=== PATIENT | female | born 1955 | race Caucasian/White ===

== ENCOUNTER → 2017-01-07 | Outpatient (CLI) | payer BC | LOC: RAD 09:24 | PROVIDERS: ATTEND Internal Medicine Medical Oncology | DX: C50.919 Malignant neoplasm of unspecified site of unspecified female breast (principal) | CPT/HCPCS: 78306; A9503; Q9969 ==

== ENCOUNTER 2017-01-09 12:59 | Day surgery (SDC) | payer BC ==
[~2017-01-09 12:59] MED LIST: LIDOCAINE 1%/EPINEPHRINE INJ 20 ML VIAL ONE
[2017-01-09] MEDS ORDERED: CEFAZOLIN 1 GM/D5W RTU 1 GM/50 ML RTUPB IV ONE (13:12)
[2017-01-09] MEDS ORDERED: RINGERS SOLUTION,LACTATED 1,000 ML IV PRN (13:26)
[2017-01-09] MEDS ORDERED: ACETAMINOPHEN 325 MG TABLET PO PRN (13:27)
[2017-01-09] MEDS ORDERED: KETAMINE HCL INJ 500 MG/10 ML VIAL ONE (13:52)
[2017-01-09] MEDS ORDERED: MIDAZOLAM 2 MG/2 ML INJ ONE (13:52)
[2017-01-09] MEDS ORDERED: PROPOFOL INJ 200 MG/20 ML VIAL IV ONE (13:52)
[2017-01-09] MEDS ORDERED: LIDOCAINE 1%/EPINEPHRINE INJ 20 ML VIAL ONE (14:12)
[2017-01-09] MEDS ORDERED: MEPERIDINE HCL/PF INJ 25 MG/1 ML DISP.SYRIN IV PRN (14:54)
[2017-01-09] MEDS ORDERED: MORPHINE SULFATE 10 MG/ML INJ IV PRN (14:54)
[2017-01-09] MEDS ORDERED: OXYCODONE-ACETAMINOPHEN 5-325 MG TABLET PO PRN ×3 (14:54→15:08)
[2017-01-09] MEDS ORDERED: FENTANYL CITRATE INJ/PF 100 MCG/2 ML AMPUL IV PRN ×3 (14:54)
[2017-01-09] MEDS ORDERED: DIPHENHYDRAMINE HCL 50 MG/ML VIAL IV PRN (14:54)
[2017-01-09] MEDS ORDERED: PROMETHAZINE HCL INJ 25 MG/1 ML VIAL IV PRN ×2 (14:54)
[2017-01-09] MEDS ORDERED: ONDANSETRON HCL INJ/PF 4 MG/2 ML SDV IV PRN (15:08)
--- NOTE | 2017-01-09 15:08 | Operative Report ---
Operative Report DATE OF SURGERY: 01/09/17 PREOPERATIVE DIAGNOSIS: Left breast carcinoma POSTOPERATIVE DIAGNOSIS: Same OPERATION: 1. Focused ultrasound right neck. 2. Percutaneous access to right internal jugular vein. 3. Placement of right subclavian [id number]. 4. Interpretation of intraoperative fluoroscopy. SURGEON: FELIPE BURNETT 1ST HOT DIPPER: CAITLIN YEAGER ANESTHESIA: LMAC TISSUE REMOVED OR ALTERED: None COMPLICATIONS: None ESTIMATED BLOOD LOSS: scant INTRAOPERATIVE FINDINGS: Below PROCEDURE: Informed consent was obtained. The patient was placed in Trendelenburg the right neck and chest wall were exposed, and prepped and draped in a sterile fashion. Surgical plan and surgical timeout discussed. The right neck was anesthetized with 1% lidocaine without epinephrine. Using the variable frequency linear transducer, real time, a Vicryl needle and were threaded into the right internal jugular vein. A suitable site for placement of the Xblmzo-q-Oeif was chosen. Skin was anesthetized with 1% lidocaine plain. A 3 cm incision was made and a subcutaneous pocket was developed large enough to accommodate a dual-chamber port. The catheter was trimmed appropriately tunneled between the 2 wounds, attached to the port with the ring, the port was tucked into the pocket. The microwire was switched over to a 0.035 wire using the introducer sheath. The tract was dilated up, the dilator removed, and the catheter was threaded into the right internal jugular vein uneventfully. the catheter by fluoroscopic examination. There was excellent aspiration and flush of saline through all 2 lumens. Chambers were flushed with heparinized saline. Wounds closed with 2-0 Vicryl, benzoin and Steri-Strips The patient tolerated the procedure well. There were no complications. Portable upright chest x-ray pending at time of dictation. The physician personal assistant, Ms. Yeager, provided assistance during this case by: retracting tissue, instillation of local anesthesia and closure of skin incisions.
--- NOTE | 2017-01-09 15:11 | PDOC DISCHARGE SUMMARY ---
Discharge Summary (SDC) - Discharge Final Diagnosis: Left breast cancer Date of Surgery: 01/09/17 Discharge Date: 01/09/17 Condition: Good Treatment or Instructions: [facility] [address] [place] [id number] Discharge Instructions: Neck Surgery 1. General Information: a. Do not drive a car or operate machinery for 1-2 weeks or as long as taking narcotics for pain. b. Do not consume alcohol, tranquilizers, sleeping medications or any non- prescribed medications for 24 hours unless approved by your doctor or as long as taking pain medication. c. Do not make important decisions or sign any important papers for the first 24 hours after surgery. d. When discharged home the same day of surgery have a responsible person with you for the first night. 2. Activity Restrictions: 2 weeks. a. Avoid heavy lifting > 10 lbs, straining, sports, mowing lawn, shoveling snow, vacuum cleaning and bending over a lot. Limit bending to taking a shower and getting dressed. Sleep with head elevated (2 pillows). b. Walking is important to avoid blood clots in the legs and deep breathing can prevent pneumonia. c. It is fine to go up and down steps, ride in a car, and use a stationary bike with low resistance. 3. Treatment: a. The dressing can be removed the day after surgery and to shower then daily is fine, but you should not bathe in the tub or go swimming for 2 weeks. The paper strips (steri-strips) on the skin will fall off and can get wet with a shower, just pat them dry. The sutures dissolve and the strips will be removed in the office on your follow up visit if they have not fallen off by then. May shower 24 hours after surgery; if your incision was glued you may wash your neck and expect glue to fall off in about 2 weeks. b. Do not use oils, powders or lotion on your incision until after the first postoperative visit. Then you may begin to apply daily to the incision a cream of your choice (Vitamin E, cocoa butter, scar creams) to help soften the scar. c. If you are fair skinned it would be davidson to use sunscreen on the scar for the first 6 months or keep it covered to avoid tanning pigment deposits being trapped in the scar creating a dark line instead of a pink scar. 4. Medications: a. You may take narcotic prescription tablets for pain if needed, one or two every 4 hours (percocet). b. Stop the narcotic when able since you cannot take and drive and they may cause constipation. You may switch to plain Tylenol, Advil or Aleve as you transition from the narcotic. Many adults find good pain relief with Ibuprofen 600-800 mg three times a day with meals to work well to avoid narcotic use. High doses of Ibuprofen should only be used for short courses since it can cause indigestion, ulcer bleeding in the stomach and harm kidney function. c. You should resume all normal medications unless a change is specified by your doctors. d. a. If going home same day of surgery you should begin with clear liquids and if do well then advance to a normal diet with foods low in fat and protein. Small portion sizes may be davidson the first night to lessen risk of vomiting. b. When discharged after a hospital stay you may resume a normal diet. 6. Notify Physician If: a. Worsening of pain or swelling in neck, persistent bleeding at the operative site, nausea and vomiting, fever above 101, unable to urinate and bladder pressure after 8-12 hours, increased redness, drainage, or foul smelling discharge from the incision. b. If you have difficulty breathing or chest pain, call an ambulance and/or go to the Emergency Room. 7. Follow Up Care: a. Schedule a follow up appointment with your doctor for 2 weeks. In the event of any postoperative problems or questions or you may call the office during business hours or the On-Call physician evenings and weekends at [facility]. [facility] 8. I understand the instructions for my postoperative care as described above and a copy has been given to me. Patient/Significant Other Witness Date Prescriptions: Oxycodone HCl/Acetaminophen [Percocet 5-325 mg Tablet] 1 tab PO ASDIR PRN #15 tab PRN Reason: Discharge Diet: As Tolerated Discharge Activity: Activity As Tolerated Home Care Assistance: None Needed Report the Following to Your Physician Immediately: Shortness of Breath, Increase in Pain, Fever over 101 Degrees
[2017-01-09 17:10] VITALS: BP 148/74
== END 2017-01-09 17:09 | disposition home or self-care (01) ==
LOC: OROUT 12:59
PROVIDERS: ATTEND Surgery
PROC: 05H533Z Insertion of Infusion Device into Right Subclavian Vein, Percutaneous Approach (ICD-10-PCS; principal; 2017-01-09 15:00)
DX: C50.912 Malignant neoplasm of unspecified site of left female breast (principal); I10 Essential (primary) hypertension; F41.9 Anxiety disorder, unspecified; M25.559 Pain in unspecified hip; Z87.891 Personal history of nicotine dependence; Z79.899 Other long term (current) drug therapy; Z88.2 Allergy status to sulfonamides
CPT/HCPCS: 36561; 71010; 77001; C1788; C1752; J2250; J0690; J3490 ×2; J2704; J1642; 532

== ENCOUNTER → 2017-01-10 | Outpatient (CLI) | payer BC | LOC: RAD 10:55 | PROVIDERS: ATTEND Internal Medicine Medical Oncology | DX: R06.02 Shortness of breath (principal); C50.919 Malignant neoplasm of unspecified site of unspecified female breast | CPT/HCPCS: 78472; A9560; J1642; Q9969 ==

== ENCOUNTER → 2017-01-17 | Outpatient (CLI) | payer BC | LOC: OD 10:40 | PROVIDERS: ATTEND Internal Medicine Medical Oncology | DX: R07.81 Pleurodynia (principal) ==

== ENCOUNTER → 2017-01-21 | Outpatient (CLI) | payer BC | LOC: RAD 12:26 | PROVIDERS: ATTEND Internal Medicine Medical Oncology | DX: C50.919 Malignant neoplasm of unspecified site of unspecified female breast (principal) | CPT/HCPCS: 71260; 74160 ==

== ENCOUNTER → 2017-01-28 | Outpatient (CLI) | payer BC | LOC: RAD 15:24 | PROVIDERS: ATTEND Internal Medicine Medical Oncology | DX: R93.2 Abnormal findings on diagnostic imaging of liver and biliary tract (principal); K76.9 Liver disease, unspecified | CPT/HCPCS: 74183; A9576 ==

== ENCOUNTER → 2017-03-10 | Outpatient (CLI) | payer BC | LOC: RAD 16:56 | PROVIDERS: ATTEND Internal Medicine Medical Oncology | DX: C50.919 Malignant neoplasm of unspecified site of unspecified female breast (principal) | CPT/HCPCS: 78815; A9552 ==

== ENCOUNTER 2017-03-25 10:44 | Outpatient (CLI) | payer BC ==
[2017-03-25] MEDS ORDERED: NORMAL SALINE 250 ML IV PRN (11:25)
[2017-03-25] MEDS ORDERED: ACETAMINOPHEN 325 MG TABLET PO PRN (11:26)
[2017-03-25] MEDS ORDERED: DIPHENHYDRAMINE HCL 25 MG CAPSULE PO PRN (11:27)
[2017-03-25] MEDS ORDERED: FUROSEMIDE INJ/PF 20 MG/2 ML SDV IV PRN (11:27)
[2017-03-25 11:57] LABS: HEMATOCRIT 21.7 % (36.0-47.0); HGB HCT DIFFERENCE 1.1; MEAN CORPUSCULAR HEMOGLOBIN 31.7 pg (27.0-33.4); MEAN CORPUSCULAR HGB CONC 35.1 g/dL (32.0-36.0); MEAN CORPUSCULAR VOLUME 91 fl (80-97); RED BLOOD COUNT 2.39 10^6/uL (3.72-5.28); RED CELL DISTRIBUTION WIDTH 16.1 % (11.5-14.0)
[2017-03-25 12:15] LABS: WHITE BLOOD COUNT 0.5 10^3/uL (4.0-10.5)
[2017-03-25 12:18] LABS: HEMOGLOBIN 7.6 g/dL (12.0-15.5)
[2017-03-25 19:27] VITALS: BP 128/69
[2017-03-25 20:58] LABS: HEMATOCRIT 26.3 % (36.0-47.0); HEMOGLOBIN 9.1 g/dL (12.0-15.5); MEAN CORPUSCULAR HEMOGLOBIN 30.1 pg (27.0-33.4); MEAN CORPUSCULAR HGB CONC 34.8 g/dL (32.0-36.0); RED BLOOD COUNT 3.03 10^6/uL (3.72-5.28); RED CELL DISTRIBUTION WIDTH 16.6 % (11.5-14.0)
[2017-03-25 21:22] LABS: MEAN CORPUSCULAR VOLUME 87 fl (80-97); WHITE BLOOD COUNT 0.5 10^3/uL (4.0-10.5)
[2017-03-26 13:13] LABS: PATH REVIEW PATHOLOGIST REVIEWED
== END 2017-03-25 21:04 | disposition home or self-care (01) ==
LOC: II 10:44 → 2S 10:53 → II 21:04
PROVIDERS: ATTEND Internal Medicine Medical Oncology
PROC: 30243N1 Transfusion of Nonautologous Red Blood Cells into Central Vein, Percutaneous Approach (ICD-10-PCS; principal; 2017-03-25)
DX: C50.919 Malignant neoplasm of unspecified site of unspecified female breast (principal)
CPT/HCPCS: 86900; 86901; 36415; 36430; 86850; 85027; 86920; P9016

== ENCOUNTER → 2017-04-29 | Outpatient (CLI) | payer BC ==
--- NOTE | 2017-04-29 13:28 | RADIOLOGY REPORT (SQ) ---
EXAM DESCRIPTION: MRI ABDOMEN COMBO COMPLETED DATE/TIME: 04/29/2017 10:31 am REASON FOR STUDY: ABNORMAL CT OF LIVER R93.2 ABNORMAL FINDINGS ON DX IMAGING OF LIVER AND BILIARY T COMPARISON: PET-CT 03/10/2017 MRI abdomen 01/28/2017 CT chest abdomen and pelvis 01/21/2017 TECHNIQUE: Multiplanar multisequence imaging performed without and with contrast including sagittal, axial and coronal T2, axial T1, axial gradient fat sat T1, axial, sagittal and coronal fat sat T1 po st contrast. CONTRAST TYPE AND DOSE: 20 mL Prohance. RENAL FUNCTION: Creatinine 0.7 Estimated GFR greater than 60 LIMITATIONS: None. FINDINGS: LIVER: No discrete nodules are identified in the liver on the T2, precontrast T1 weighted images or out of phase T1 weighted images. On the delayed postcontrast images, some contrast blush i s seen in the lateral aspect right lobe liver image 36, involving less than a cm diameter area. This is less prominent than on prior MRI abdomen 01/28/2017. SPLEEN: Normal size. No focal lesions. PANCREAS: No masses. No adjacent inflammation or peripancreatic fluid collections. Pancreatic duct no t dilated. GALLBLADDER: No masses. No stones. No gallbladder wall thickening or pericholecystic fluid. ADRENAL GLANDS: No significant masses or asymmetry. RIGHT KIDNEY AND URETER: No masses. No hydronephrosis. 1.5 cm cyst versus calyceal diverticulum righ t upper pole kidney. LEFT KIDNEY AND URETER: No masses. No hydronephrosis. AORTA AND VESSELS: No aneurysm. No dissection. Renal arteries, SMA, celiac without stenosis. RETROPERITONEUM: No retroperitoneal adenopathy, hemorrhage or masses. BOWEL: No visualized masses. No inflammation. No significant dilatation. ABDOMINAL WALL AND PERITONEUM: No hernias. No free fluid. BONES: No acute or significant findings. OTHER: No other significant finding. IMPRESSION: Ill-defined foci of contrast enhancement seen on prior MRI in the liver 01/28/2017 are le ss prominent on today's exam, only 1 subtle subcentimeter focus of liver parenchymal enhancement is s een on delayed T1 weighted images of uncertain clinical significance. TECHNICAL DOCUMENTATION: JOB ID: [id number]- All Rights Reserved
== END ==
LOC: RAD 09:28
PROVIDERS: ATTEND Internal Medicine Medical Oncology
DX: R93.2 Abnormal findings on diagnostic imaging of liver and biliary tract (principal)
CPT/HCPCS: 74183; A9576

== ENCOUNTER → 2017-07-10 | Outpatient (CLI) | payer BC ==
--- NOTE | 2017-07-10 15:02 | RADIOLOGY REPORT (SQ) ---
EXAM DESCRIPTION: MRI ABDOMEN COMBO COMPLETED DATE/TIME: 07/10/2017 11:31 am REASON FOR STUDY: ABD LIVER SCAN (R93.2) R93.2 ABNORMAL FINDINGS ON DX IMAGING OF LIVER AND BILIARY T COMPARISON: CT chest 01/29/2017 MRI abdomen 01/28/2017 PET-CT 03/10/2017 MRI abdomen 04/29/2017 TECHNIQUE: Multiplanar multisequence imaging performed without and with contrast including sagittal, axial and coronal T2, axial T1, axial gradient fat sat T1, axial, sagittal and coronal fat sat T1 po st contrast. CONTRAST TYPE AND DOSE: 20 mL Prohance. RENAL FUNCTION: Creatinine 0.7, estimated GFR greater than 60 LIMITATIONS: None. FINDINGS: LIVER: Normal size. No masses. No dilated ducts. CBD normal. The subtle foci of contrast enhancement seen on CT exam 01/21/2017 and MRI exam 12/31/2016 are no longer identified. SPLEEN: Normal size. No focal lesions. PANCREAS: No masses. No adjacent inflammation or peripancreatic fluid collections. Pancreatic duct no t dilated. GALLBLADDER: No masses. No stones. No gallbladder wall thickening or pericholecystic fluid. ADRENAL GLANDS: No significant masses or asymmetry. RIGHT KIDNEY AND URETER: No masses. No hydronephrosis. LEFT KIDNEY AND URETER: No masses. No hydronephrosis. AORTA AND VESSELS: No aneurysm. No dissection. Renal arteries, SMA, celiac without stenosis. RETROPERITONEUM: No retroperitoneal adenopathy, hemorrhage or masses. BOWEL: No visualized masses. No inflammation. No significant dilatation. ABDOMINAL WALL AND PERITONEUM: No hernias. No free fluid. BONES: No acute or significant findings. OTHER: No other significant finding. IMPRESSION: NORMAL MRI OF THE ABDOMEN WITHOUT AND WITH CONTRAST. TECHNICAL DOCUMENTATION: JOB ID: [id number] [employer]- All Rights Reserved
== END ==
LOC: RAD 10:16
PROVIDERS: ATTEND Internal Medicine Medical Oncology
DX: R93.2 Abnormal findings on diagnostic imaging of liver and biliary tract (principal)
CPT/HCPCS: 82565; 74183; A9576

== ENCOUNTER → 2018-03-27 | Outpatient (CLI) | payer BC ==
--- NOTE | 2018-03-27 12:12 | RADIOLOGY REPORT (SQ) ---
EXAM DESCRIPTION: CT CHEST WITH; CT ABD/PELVIS WITH IV ORAL COMPLETED DATE/TIME: 03/27/2018 10:19 am REASON FOR STUDY: BREAST CA C50.912 MALIGNANT NEOPLASM OF UNSPECIFIED SITE OF LEFT FEMAL COMPARISON: Bone scan 01/07/2017 CT chest and abdomen 01/21/2017 MRI abdomen 01/28/2017, 04/29/2017, 07/10/2017 PET-CT 03/10/2017 CONTRAST TYPE AND DOSE: contrast/concentration: Isovue 370.00 mg/ml; Total Contrast Delivered: 91.0 ml; Total Saline Delivered: 70.0 ml RENAL FUNCTION: Creatinine 1.1 TECHNIQUE: CT scan of the chest performed using helical scanning technique with dynamic intravenous contrast injection. Images reviewed with lung, soft tissue and bone windows. Reconstructed coronal a nd sagittal MPR images reviewed. All images stored on PACS. CT scan of the abdomen and pelvis performed with intravenous and with oral contrastusing helical scan kamaljit technique with dynamic intravenous contrast injection. Images reviewed with lung, soft tissue a nd bone windows. Reconstructed coronal and sagittal MPR images reviewed. Delayed images for evaluat ion of the urinary system also acquired and evaluated. All images stored on PACS. All CT scanners at this facility use dose modulation, iterative reconstruction, and/or weight based d osing when appropriate to reduce radiation dose to as low as reasonably achievable (ALARA). [facility]: Dose Right [facility]: CareDose [facility]: Dose Right [facility]: Teradose 4D [facility]: [employer] RADIATION DOSE: CT Rad equipment meets quality standard of care and radiation dose reduction techniq ues were employed. CTDIvol: 6.5 - 12.5 mGy. DLP: 1591 mGy-cm. . LIMITATIONS: None. FINDINGS: CHEST: LUNGS AND PLEURA: No opacities, nodules, masses. No pneumothorax. No effusions. HILAR AND MEDIASTINAL STRUCTURES: No identified masses or abnormal nodes. HEART AND VASCULAR STRUCTURES: No aneurysm or dissection. No central pulmonary emboli. No pericardi al effusion. HARDWARE: None. THYROID AND OTHER SOFT TISSUES: Bilateral mastectomy. BONES: No significant finding. OTHER: No other significant finding. ABDOMEN AND PELVIS: LIVER: Diffuse fatty infiltration of the liver, more pronounced than on previous studies. There are multiple enhancing nodules scattered throughout the liver, new compared to PET-CT 03/10/[address] abdomen pelvis 01/21/2017. These measure between 1 and 2 cm in diameter. No intrahepatic biliary ductal dilatation. SPLEEN: Normal size. No focal lesions. PANCREAS: No masses. No significant calcifications. No adjacent inflammation or peripancreatic fluid collections. Pancreatic duct not dilated. GALLBLADDER: No identified stones by CT criteria. No inflammatory changes to suggest cholecystitis. ADRENAL GLANDS: No significant masses or asymmetry. RIGHT KIDNEY AND URETER: No solid masses. No significant calcification. No hydronephrosis or hydroure ter. LEFT KIDNEY AND URETER: No solid masses. No significant calcification. No hydronephrosis or hydrouret er. AORTA AND VESSELS: No aneurysm. No dissection. Renal arteries, SMA, celiac without stenosis. RETROPERITONEUM: No retroperitoneal adenopathy, hemorrhage or masses. BOWEL AND PERITONEAL CAVITY: No masses or inflammatory changes. No free fluid or peritoneal masses. Patient drank oral contrast. No bowel obstruction. APPENDIX: Normal. ABDOMINAL WALL: No masses. No hernias. PELVIS: No mass or free fluid. Normal bladder. Post hysterectomy BONES: 5 mm sclerotic focus posterior right iliac crest, unchanged from PET-CT 03/10/2017 OTHER: No other significant finding. IMPRESSION: Post bilateral mastectomies. No CT evidence of metastatic disease to the chest. Multiple liver lesions worrisome for metastatic disease. TECHNICAL DOCUMENTATION: JOB ID: [id number] Quality ID # [id number]: Final reports with documentation of one or more dose reduction techniques (e.g., Au tomated exposure control, adjustment of the mA and/or kV according to patient size, use of iterative reconstruction technique) 2010 [employer]- All Rights Reserved Reading location - IP/workstation name: [email or web address]
== END ==
LOC: RAD 09:34
PROVIDERS: ATTEND Internal Medicine Medical Oncology
DX: C50.912 Malignant neoplasm of unspecified site of left female breast (principal); Z90.13 Acquired absence of bilateral breasts and nipples; K76.9 Liver disease, unspecified
CPT/HCPCS: 71260; 74177

== ENCOUNTER → 2018-12-23 | Outpatient (CLI) | payer BC, MEDICAID ==
--- NOTE | 2018-12-23 13:17 | RADIOLOGY REPORT (SQ) ---
EXAM DESCRIPTION: CHEST 2 VIEWS COMPLETED DATE/TIME: 12/23/2018 12:33 pm REASON FOR STUDY: R05 COUGH COMPARISON: 01/09/2017. EXAM PARAMETERS: NUMBER OF VIEWS: two views TECHNIQUE: Digital Frontal and Lateral radiographic views of the chest acquired. RADIATION DOSE: NA LIMITATIONS: none FINDINGS: LUNGS AND PLEURA: No opacities, masses or pneumothorax. No pleural effusion. MEDIASTINUM AND HILAR STRUCTURES: No masses or contour abnormalities. HEART AND VASCULAR STRUCTURES: Heart normal size. No evidence for failure. BONES: No acute findings. HARDWARE: Vascular port. Surgical clips. OTHER: No other significant finding. IMPRESSION: NO ACUTE RADIOGRAPHIC FINDING IN THE CHEST. TECHNICAL DOCUMENTATION: JOB ID: [id number] [employer]- All Rights Reserved Reading location - IP/workstation name: [email or web address]
== END ==
LOC: RAD 12:23
PROVIDERS: ATTEND Internal Medicine Medical Oncology
DX: R05 Cough (principal)
CPT/HCPCS: 71046

== ENCOUNTER → 2019-06-30 | Outpatient (CLI) | payer BC, MEDICAID ==
--- NOTE | 2019-06-30 12:22 | RADIOLOGY REPORT (SQ) ---
EXAM DESCRIPTION: CHEST PA/LATERAL COMPLETED DATE/TIME: 06/30/2019 12:01 pm REASON FOR STUDY: OTHER CHEST PAIN COMPARISON: 12/23/2018 EXAM PARAMETERS: NUMBER OF VIEWS: two views TECHNIQUE: Digital Frontal and Lateral radiographic views of the chest acquired. RADIATION DOSE: NA LIMITATIONS: none FINDINGS: LUNGS AND PLEURA: No opacities, masses or pneumothorax. No pleural effusion. MEDIASTINUM AND HILAR STRUCTURES: No masses or contour abnormalities. HEART AND VASCULAR STRUCTURES: Heart normal size. No evidence for failure. BONES: No acute findings. HARDWARE: The right subclavian chest port with catheter tip at right atrium. OTHER: No other significant finding. IMPRESSION: No evidence of acute cardiopulmonary process. TECHNICAL DOCUMENTATION: JOB ID: [id number] [employer]- All Rights Reserved Reading location - IP/workstation name: [email or web address]
--- NOTE | 2019-06-30 15:41 | RADIOLOGY REPORT (SQ) ---
EXAM DESCRIPTION: CTA CHEST COMPLETED DATE/TIME: 06/30/2019 2:43 pm REASON FOR STUDY: R07.89 OTHER CHEST PAIN, R06.02 SHORTNESS OF BREATH R07.89 OTHER CHEST PAIN R06.0 2 SHORTNESS OF BREATH C18.9 MALIGNANT NEOPLASM OF COLON, UNSPECIFIED COMPARISON: 03/27/2018 TECHNIQUE: CT scan of the chest performed using helical scanning technique with dynamic intravenous contrast injection. Images reviewed with lung, soft tissue and bone windows. Reconstructed coronal and sagittal MPR images reviewed. Additional 3 dimensional post-processing performed to develop Maximal Intensity Projection images (MN P). All images stored on PACS. All CT scanners at this facility use dose modulation, iterative reconstruction, and/or weight based d osing when appropriate to reduce radiation dose to as low as reasonably achievable (ALARA). [facility]: Dose Right [facility]: CareDose [facility]: Dose Right [facility]: Teradose 4D [facility]: [employer] CONTRAST TYPE AND DOSE: contrast/concentration: Isovue 350.00 mg/ml; Total Contrast Delivered: 56.0 ml; Total Saline Delivered: 71.3 ml Contrast bolus adequate for pulmonary arteries and aorta. RENAL FUNCTION: Creatinine 0.8 RADIATION DOSE: CT Rad equipment meets quality standard of care and radiation dose reduction techniq ues were employed. CTDIvol: 7.5 - 9.8 mGy. DLP: 373 mGy-cm. . LIMITATIONS: None. FINDINGS: LUNGS AND PLEURA: Small ground-glass nodule within the anterior left upper lobe measuring 10 mm (series 601, image 43), mildly increased in size from prior. No other pulmonary nodules or mas ses. No focal consolidation, pleural effusion or pneumothorax. AORTA AND GREAT VESSELS: No aneurysm. Contrast bolus not optimized for the aorta. HEART: No pericardial effusion. Minimal coronary atherosclerosis. Normal heart size. PULMONARY ARTERIES: No emboli visualized in the main pulmonary arteries or the segmental branches. HILAR AND MEDIASTINAL STRUCTURES: No identified masses or abnormal nodes. HARDWARE: Right subclavian based chest port with catheter tip at SVC. UPPER ABDOMEN: No significant findings. Limited exam. THYROID AND OTHER SOFT TISSUES: Unremarkable thyroid. Post bilateral mastectomies. BONES: No acute or significant finding. 3D MIPS: Confirm above findings. OTHER: No other significant finding. IMPRESSION: 1. No evidence of pulmonary embolus or other acute intrathoracic process. 2. Mildly increased conspicuity of a left upper lobe ground-glass nodule measuring up to 10 mm. Rec ommend attention on follow-up exams. No other evidence of intrathoracic metastatic disease. COMMENT: Quality ID # 436: Final reports with documentation of one or more dose reduction techniques (e.g., Automated exposure control, adjustment of the mA and/or kV according to patient size, use of iterative reconstruction technique) TECHNICAL DOCUMENTATION: JOB ID: [id number] [employer]- All Rights Reserved Reading location - IP/workstation name: [email or web address]
--- NOTE | 2019-06-30 19:08 | EKG REPORT ---
SEVERITY:- NORMAL ECG - SINUS RHYTHM : Confirmed by: Rajendra Corona MD 30-Jun-2019 19:08:20
== END ==
LOC: OD 11:37
PROVIDERS: ATTEND Internal Medicine Medical Oncology
DX: R07.89 Other chest pain (principal); R06.02 Shortness of breath; C18.9 Malignant neoplasm of colon, unspecified
CPT/HCPCS: 71046; 71275; 93005; 93010

== ENCOUNTER 2019-11-18 01:40 | Inpatient (IN) | payer MEDICARE, BC, MEDICAID ==
[2019-11-18] MEDS ORDERED: NORMAL SALINE IV ONE (01:54)
[2019-11-18] MEDS ORDERED: ACETAMINOPHEN 325 MG TABLET PO ONE (01:54)
--- NOTE | 2019-11-18 02:04 | ER Document Report ---
ED General - General Chief Complaint: fever Stated Complaint: WEAKNESS Time Seen by Provider: 11/18/19 01:48 Primary Care Provider: ALFRED BROWN [NO LOCAL MD] - Follow up as needed Mode of Arrival: Medic Information source: Patient TRAVEL OUTSIDE OF THE [place] IN LAST 30 DAYS: No - HPI Onset: Other - over the last 3 days Onset/Duration: Gradual Quality of pain: Achy Severity: Severe Pain Level: 2 Associated symptoms: Chills, Nonproductive cough, Fever, Nausea, Shortness of breath Exacerbated by: Denies Relieved by: Denies Similar symptoms previously: No Recently seen / treated by doctor: Yes - Patient had chemo about 2 weeks ago Notes: 64 year old female with a history of Breast Cancer s/p Mastectomy and currently on chemotherapy here for 3 days of cough, congestion, sore throat, fevers, chills, sweats, weakness. The patient denies body aches, urinary symptoms, diarrhea. The patient says her last chemotherapy session was bout 2 weeks ago. The patient denies known sick contacts or recent travel. Of note, the patient had a low WBC count and hypotension during her last chemo session and she only received half the treatment. Of note, EMS gave 1L of fluids and Rocephin prior to ER arrival. - Related Data Allergies/Adverse Reactions: pseudoephedrine Allergy (Verified 10/19/19 12:27) Sulfa (Sulfonamide Antibiotics) Allergy (Verified 01/09/17 13:15) Past Medical History - Social History Smoking Status: Former Smoker Chew tobacco use (# tins/day): No Frequency of alcohol use: None Drug Abuse: None Lives with: Alone Family History: Reviewed & Not Pertinent Patient has suicidal ideation: No Patient has homicidal ideation: No - Medical History Notes: Breast Cancer Undergoing Chemo - Past Medical History Cardiac Medical History: Denies: Hx Coronary Artery Disease, Hx Heart Attack, Hx Hypertension Pulmonary Medical History: Reports: Hx Pneumonia - October 2016 Denies: Hx Asthma, Hx Bronchitis, Hx COPD Neurological Medical History: Denies: Hx Cerebrovascular Accident, Hx Seizures GI Medical History: Denies: Hx Hepatitis, Hx Hiatal Hernia Musculoskeletal Medical History: Reports Hx Arthritis - Generalized Infectious Medical History: Denies: Hx Hepatitis Past Surgical History: Reports: Hx Mastectomy. Denies: Hx Open Heart Surgery, Hx Pacemaker - Immunizations Hx Diphtheria, Pertussis, Tetanus Vaccination: No Review of Systems - Review of Systems Constitutional: Diaphoresis, Fever, Weakness Respiratory: Cough, Short of breath, Sputum Gastrointestinal: Nausea Genitourinary: No symptoms reported Female Genitourinary: No symptoms reported Musculoskeletal: Other - muscle cramps Skin: Other - diaphoresis Hematologic/Lymphatic: No symptoms reported Neurological/Psychological: No symptoms reported Physical Exam - Vital signs Vitals: Resp Pulse Ox 23 H 95 11/18/19 01:46 11/18/19 01:46 - Notes Notes: GENERAL: Chronically ill appearing, moderate acute distress. HEAD: Atraumatic, normocephalic. EYES: Pupils equal round and reactive to light, extraocular movements intact, sclera anicteric, conjunctiva are normal. ENT: Nares patent, oropharynx is erythematous and raw without exudate Dry mucous membranes. NECK: Normal range of motion, supple without lymphadenopathy or JVD. LUNGS: Breath sounds clear to auscultation bilaterally and equal. No wheezes rales or rhonchi. HEART: Tachycardic and normal rhythm without murmurs, rubs or gallops. ABDOMEN: Soft, nontender, normoactive bowel sounds. No guarding, no rebound. No masses appreciated. EXTREMITIES: Normal range of motion, no pitting or edema. No clubbing or cyanosis. NEUROLOGICAL: Cranial nerves II through XII grossly intact. Normal speech, normal gait. PSYCH: Normal mood, normal affect. SKIN: Warm, Dry, normal turgor, no rashes or lesions noted. Course - Re-evaluation Re-evalutation: 11/18/19 02:52 The patient is neutropenic and she meets sepsis criteria. The patient was given sepsis fluid boluses and more fluids after that given her hypotension, lactic acidosis, and her clinical exam showing she is very volume down. Patient treated with Vanc and Zosyn in the ER for broad coverage. Patient will likely need ICU level care for her sepsis. The ICU midlevel provider was consulted and she will see the patient in the ER. The patient clearly needs admission and depneding on her response to fluids and antibiotics she will likely end up in the ICU although step down is possible if she improves. Care ongoing. Patient signed out to oncoming ER doctor. 11/18/19 03:04 - Vital Signs Vital signs: Temp Pulse Resp BP Pulse Ox 98.5 F 144 H 19 89/57 L 97 11/18/19 01:53 11/18/19 01:57 11/18/19 02:30 11/18/19 02:30 11/18/19 02:30 - Laboratory Result Diagrams: 11/18/19 01:46 11/18/19 01:46 Laboratory results interpreted by me: 11/18/19 11/18/19 11/18/19 01:46 01:46 01:46 WBC 0.7 L* RBC 2.95 L Hgb 9.3 L Hct 27.6 L RDW 19.1 H Plt Count 69 L Adams % (Auto) 1.4 L Absolute Neuts (auto) 0.5 L Absolute Lymphs (auto) 0.2 L Absolute Monos (auto) 0.0 L PT 16.0 H VBG pCO2 VBG HCO3 Carbon Dioxide 18 L Glucose 122 H POC Glucose Lactic Acid Total Bilirubin 6.9 H Direct Bilirubin 5.6 H AST 171 H Alkaline Phosphatase 323 H Total Protein 5.4 L Albumin 2.7 L 11/18/19 11/18/19 11/18/19 02:08 02:08 02:17 WBC RBC Hgb Hct RDW Plt Count Adams % (Auto) Absolute Neuts (auto) Absolute Lymphs (auto) Absolute Monos (auto) PT VBG pCO2 32.8 L VBG HCO3 18.8 L Carbon Dioxide Glucose POC Glucose 134 H Lactic Acid 4.9 H Total Bilirubin Direct Bilirubin AST Alkaline Phosphatase Total Protein Albumin - EKG Interpretation by Me EKG shows normal: Sinus rhythm, [place], Intervals, QRS Complexes, ST-T Waves Rate: Tachycardia Critical Care Note - Critical Care Note Total time excluding time spent on procedures (mins): 43 Discharge - Discharge Clinical Impression: Acidosis Sepsis Qualifiers: Sepsis type: sepsis due to unspecified organism Sepsis acute organ dysfunction status: without acute organ dysfunction Qualified Code(s): A41.9 - Sepsis, unspecified organism Neutropenia Qualifiers: Neutropenia type: other drug-induced Qualified Code(s): D70.2 - Other drug- induced agranulocytosis Condition: Critical Disposition: ADMITTED INPATIENT Unit Admitted: ICU Referrals: LOCALMD,NO [NO LOCAL MD] - Follow up as needed
[2019-11-18 02:13] LABS: ABSOLUTE LYMPHOCYTES (AUTO) 0.2 10^3/uL (0.5-4.7); ABSOLUTE NEUT (AUTO) 0.5 10^3/uL (1.7-8.2); ALBUMIN 2.7 g/dL (3.5-5.0); ALKALINE PHOSPHATASE 323 U/L (38-126); ANION GAP 14 (5-19); ASPARTATE AMINO TRANSFERASE 171 U/L (14-36); BASOPHILS % (AUTO) 1.1 % (0-2); BILIRUBIN,DIRECT 5.6 mg/dL (0.0-0.4); BILIRUBIN,TOTAL 6.9 mg/dL (0.2-1.3); BLOOD UREA NITROGEN 15 mg/dL (7-20); CALCIUM 8.8 mg/dL (8.4-10.2); CARBON DIOXIDE 18 mmol/L (22-30); CHLORIDE 106 mmol/L (98-107); EOSINOPHILS % (AUTO) 0.4 % (0-6); GLUCOSE 122 mg/dL (75-110); HEMATOCRIT 27.6 % (36.0-47.0); HEMOGLOBIN 9.3 g/dL (12.0-15.5); LYMPHOCYTES % (AUTO) 23.6 % (13-45); MEAN CORPUSCULAR HEMOGLOBIN 31.4 pg (27.0-33.4); MEAN CORPUSCULAR HGB CONC 33.5 g/dL (32.0-36.0); MEAN CORPUSCULAR VOLUME 94 fl (80-97); MONOCYTES % (AUTO) 1.4 % (3-13); POTASSIUM 3.7 mmol/L (3.6-5.0); RED BLOOD COUNT 2.95 10^6/uL (3.72-5.28); RED CELL DISTRIBUTION WIDTH 19.1 % (11.5-14.0); SEGMENTED NEUTROPHILS % (AUTO) 73.5 % (42-78); TOTAL CELLS COUNTED % (AUTO) 100 %; TOTAL PROTEIN 5.4 g/dL (6.3-8.2)
[2019-11-18 02:15] LABS: INTERNATIONAL RATION (INR) 1.27
[2019-11-18 02:26] LABS: VENOUS BLOOD BASE EXCESS -5.6 mmol/L; VENOUS BLOOD HCO3 18.8 mmol/L (20-32); VENOUS BLOOD PCO2 32.8 mmHg (35-63); VENOUS BLOOD PH 7.38 (7.30-7.42)
[2019-11-18 02:47] LABS: A TYPE INFLUENZA AG NEGATIVE (NEGATIVE); B INFLUENZA AG NEGATIVE (NEGATIVE)
[2019-11-18] MEDS ORDERED: PIPERACILLIN/TAZOBACTAM 3.375 GM VIAL IV ONE (02:53)
[2019-11-18] MEDS ORDERED: VANCOMYCIN HCL INJ 1000 MG VIAL IV ONE ×2 (02:54→03:03)
[2019-11-18 02:58] LABS: ANISOCYTOSIS 2+; BURR CELLS SLIGHT; PLATELET COMMENT DECREASED; PLATELET LARGE PRESENT; SCHISTOCYTES SLIGHT; TEAR DROP CELLS SLIGHT; TOXIC GRANULATION 1+; TOXIC VACUOLATION PRESENT
[2019-11-18 03:01] LABS: WHITE BLOOD COUNT 0.7 10^3/uL (4.0-10.5)
[2019-11-18 03:02] LABS: PLATELET COUNT 69 10^3/uL (150-450)
--- NOTE | 2019-11-18 03:12 | RADIOLOGY REPORT (SQ) ---
Chest single view on 11/18/2019 2:48 AM CLINICAL INDICATION: Shortness of breath COMPARISON: 06/30/2019 FINDINGS: There is mild elevation of the right hemidiaphragm. Right subclavian Port-A-Cath tip is in the right atrium. The lungs are clear. Cardiac, hilar and mediastinal contours are within normal limits. Pulmonary vascularity is within normal limits. IMPRESSION: No acute disease.
[2019-11-18] MEDS ORDERED: NORMAL SALINE 1000 ML 1,000 ML IV ONE (03:23)
[2019-11-18] MEDS: NORMAL SALINE 1000 ML 1,000 ML IV PRN ×4 (05:17→21:15)
[2019-11-18 05:34] LABS: APPEARANCE,URINE CLEAR; BILIRUBIN,URINE NEGATIVE (NEGATIVE); COLOR,URINE AMBER; GLUCOSE, URINE NEGATIVE (NEGATIVE); KETONES,URINE NEGATIVE (NEGATIVE); PROTEIN,URINE NEGATIVE (NEGATIVE); URINE SPECIFIC GRAVITY 1.008; UROBILINOGEN,URINE NEGATIVE mg/dL (<2.0)
--- NOTE | 2019-11-18 05:38 | EKG REPORT ---
SEVERITY:- OTHERWISE NORMAL ECG - SINUS TACHYCARDIA : Confirmed by: Sejal Luna MD 18-Nov-2019 05:37:41
[2019-11-18] MEDS ORDERED: DEXTROSE 5%-WATER 250 ML with NOREPINEPHRINE BITARTRATE 4 MG IV PRN ×2 (05:52)
[2019-11-18 05:57] LABS: ABSOLUTE LYMPHOCYTES (AUTO) 0.2 10^3/uL (0.5-4.7); ABSOLUTE MONOCYTES (AUTO) 0.4 10^3/uL (0.1-1.4); ABSOLUTE NEUT (AUTO) 0.1 10^3/uL (1.7-8.2); HEMATOCRIT 21.2 % (36.0-47.0); LYMPHOCYTES % (AUTO) 27.8 % (13-45); MEAN CORPUSCULAR HEMOGLOBIN 31.4 pg (27.0-33.4); MEAN CORPUSCULAR HGB CONC 33.1 g/dL (32.0-36.0); MEAN CORPUSCULAR VOLUME 95 fl (80-97); MONOCYTES % (AUTO) 61.1 % (3-13); RED BLOOD COUNT 2.23 10^6/uL (3.72-5.28); SEGMENTED NEUTROPHILS % (AUTO) 11.1 % (42-78); TOTAL CELLS COUNTED % (AUTO) 100 %
[2019-11-18 06:00] LABS: INTERNATIONAL RATION (INR) 1.39; PROTHROMBIN TIME 17.2 SEC (11.4-15.4)
[2019-11-18] MEDS ORDERED: HEPARIN SOD (PORCINE) 5,000 UNIT/ML 1 ML VIAL SUBCUT SCH (06:00)
[2019-11-18 06:01] LABS: PARTIAL THROMBOPLASTIN TIME 40.4 SEC (23.5-35.8)
[2019-11-18 06:07] LABS: ALBUMIN 2.1 g/dL (3.5-5.0); ALKALINE PHOSPHATASE 227 U/L (38-126); ANION GAP 11 (5-19); ASPARTATE AMINO TRANSFERASE 117 U/L (14-36); BILIRUBIN,DIRECT 4.9 mg/dL (0.0-0.4); BILIRUBIN,TOTAL 5.7 mg/dL (0.2-1.3); BLOOD UREA NITROGEN 13 mg/dL (7-20); CALCIUM 7.2 mg/dL (8.4-10.2); CARBON DIOXIDE 17 mmol/L (22-30); CHLORIDE 112 mmol/L (98-107); GLUCOSE 142 mg/dL (75-110); PHOSPHORUS 2.8 mg/dL (2.5-4.5); POTASSIUM 3.4 mmol/L (3.6-5.0); TOTAL PROTEIN 4.5 g/dL (6.3-8.2)
[2019-11-18 06:12] LABS: WHITE BLOOD COUNT 0.7 10^3/uL (4.0-10.5)
[2019-11-18] MEDS ORDERED: NOREPINEPHRINE BITARTRATE INJ/PF 4 MG/4 ML SDV IV ONE (06:18)
[2019-11-18 06:44] LABS: ANISOCYTOSIS 2+; TOXIC GRANULATION 1+; TOXIC VACUOLATION PRESENT
[2019-11-18 06:45] LABS: OVALOCYTES SLIGHT; PLATELET COMMENT DECREASED; PLATELET LARGE PRESENT
[2019-11-18 06:54] LABS: PLATELET COUNT 42 10^3/uL (150-450)
[2019-11-18] MEDS ORDERED: VANCOMYCIN HCL 0 MG in DEXTROSE 5%-WATER 250 ML IV NR (07:15)
--- NOTE | 2019-11-18 07:45 | CRITICAL CARE ADMISSION REPORT ---
HPI Date:: 11/18/19 Time:: 05:08 Reason for ICU Reason:: Hypotension, PNA, neutropenia HPI: Mrs. Robert is a 64yr old F with PMHx of breast CA s/p mastectomy, currently on chemotherapy, who presented to the ED with complaints of productive cough, congestion, sore throat, fever, chills, weakness, "small" amount of diarrhea, anorexia, weakness and general malaise that started 3-4 days ago. Her most recent chemotherapy treatments was 2 weeks ago. She is initially assessed in the ED with her partner at the bedside. Her partner states she has very poor PO intake over the past 3 days and has not eaten anything at all yesterday. Pt states her normal SPB is usually ~110-120; she has a SBP of 85 and tachy to 120s on assessment in ED. She was noted to cough up copious amounts of thick clear mucous. She denies nausea or vomiting, headache, CP, palpitation. Pt will be a dmitted to ICU for treatment of sepsis, hypotension and PNA - Diagnosis/Plan (1) Hypotension Is this a current diagnosis for this admission?: Yes (2) Neutropenia Qualifiers: Neutropenia type: other drug-induced Qualified Code(s): D70.2 - Other drug- induced agranulocytosis Is this a current diagnosis for this admission?: Yes (3) Sepsis Qualifiers: Sepsis type: sepsis due to unspecified organism Sepsis acute organ dysfunction status: without acute organ dysfunction Qualified Code(s): A41.9 - Sepsis, unspecified organism Is this a current diagnosis for this admission?: Yes - . Plan Summary: Pulm: * Treatment for PNA in immunocompromised pt - sputum cx pending * monitor pulse ox - administer supplemental O2 as needed * maintain aspiration precautions * Follow chest xrays CV: * Hypotension - start levo and monitor response * Maintain tele monitor Neuro: * Assess neuro status Q2hr for acute changes Renal: * maintain strict I&O, trend renal indices, repalcy lytes PRN GI: * zofran PRN for nausea * oral ulceraltions - consider magic mouthwash if indicated Heme/Onc: * Monitor CBC * Hx of breast CA on chemo ID: * Sputum cx pending * continue broad spectrum abx * maintain reverse precautions Past Medical History Past Medical History: As per HPI Cardiac Medical History: Denies: Coronary Artery Disease, Myocardial Infarction, Hypertension Pulmonary Medical History: Reports: Pneumonia - October 2016 Denies: Asthma, Bronchitis, Chronic Obstructive Pulmonary Disease (COPD) Neurological Medical History: Denies: Seizures GI Medical History: Denies: Hepatitis, Hiatal Hernia Musculoskeltal Medical History: Reports: Arthritis - Generalized Hematology: Denies: Anemia, Sickle Cell Disease Past Surgical History Past Surgical History: Reports: Mastectomy Denies: Amputation, Pacemaker Social/Family History - Social History Lives with: Alone Smoking Status: Former Smoker Drugs: None Hx Prescription Drug Abuse: No - Medication/Allergies Home Medications: Alprazolam [Xanax 0.5 mg Tablet] 0.5 mg PO DAILY 01/09/17 Metoprolol Succinate 100 mg PO DAILY 01/09/17 Simvastatin 40 mg PO DAILY 01/09/17 Venlafaxine HCl [Effexor 25 mg Tablet] 25 mg PO DAILY 01/09/17 Besifloxacin HCl [Besivance 0.6% Oph Susp 5 ml] 1 drop OP ASDIR 10/15/19 Bromfenac Sodium [Prolensa] 1 drop OP ASDIR 10/15/19 Difluprednate [Durezol] 1 drop OP ASDIR 10/15/19 Fluticasone Propionate [24 Hour Allergy] 9.9 ml NS ASDIR PRN 10/15/19 Letrozole [Femara 2.5 Mg Tablet] 2.5 mg PO DAILY 10/15/19 Ondansetron [Ondansetron Odt] 8 mg PO ASDIR PRN 10/15/19 Oxycodone HCl/Acetaminophen [Percocet 5-325 mg Tablet] 1 tab PO Q8H PRN 10/15/19 Tramadol HCl [Tramadol HCl ER] 100 mg PO BID 10/15/19 Venlafaxine HCl [Effexor 75 mg Tablet] 75 mg PO DAILY 10/15/19 Allergies/Adverse Reactions: pseudoephedrine Allergy (Verified 10/19/19 12:27) Sulfa (Sulfonamide Antibiotics) Allergy (Verified 01/09/17 13:15) Review of Systems Constitutional: PRESENT: anorexia, chills, fatigue, fever(s), weakness Eyes: ABSENT: visual disturbances Ears: ABSENT: hearing changes Nose, Mouth, and Throat: PRESENT: mouth pain - with ulcerations Cardiovascular: ABSENT: chest pain, palpitations Respiratory: PRESENT: cough, sputum. ABSENT: hemoptysis Gastrointestinal: PRESENT: diarrhea, nausea, vomiting. ABSENT: abdominal pain, coffee ground emesis, hematemesis Musculoskeletal: PRESENT: muscle weakness Neurological: PRESENT: weakness. ABSENT: syncope Physical Exam Vital Signs: Temp Pulse Resp BP Pulse Ox 97.8 F 129 H 19 90/55 L 97 11/18/19 04:40 11/18/19 04:29 11/18/19 04:29 11/18/19 04:29 11/18/19 04:29 Intake & Output 11/16/19 11/17/19 11/18/19 06:59 06:59 06:59 Intake Total 3360 Balance 3360 Weight 78.5 kg Weight/Height Weight 78.5 kg Height 5 ft 6 in General appearance: PRESENT: mild distress, obese Head exam: PRESENT: atraumatic, normocephalic Eye exam: PRESENT: conjunctiva pale, EOMI, PERRLA Ear exam: PRESENT: normal external ear exam Mouth exam: PRESENT: dry mucosa, other - several ulcerations on the oral mucosa Throat exam: ABSENT: tonsillar exudate Neck exam: PRESENT: JVD. ABSENT: tracheal deviation Respiratory exam: PRESENT: clear to auscultation esther. ABSENT: crackles, rhonchi, wheezes Cardiovascular exam: PRESENT: +S1, +S2, tachycardia Pulses: PRESENT: +1 pedal pulses bilateral GI/Abdominal exam: PRESENT: normal bowel sounds, soft. ABSENT: mass, tenderness Rectal exam: PRESENT: deferred Extremities exam: ABSENT: pedal edema Neurological exam: PRESENT: alert, awake, oriented to person, oriented to place, oriented to time, oriented to situation, CN II-XII grossly intact Psychiatric exam: PRESENT: normal mood Skin exam: PRESENT: dry, pallor Laboratory/Radiographs Laboratory Results: 11/18/19 11/18/19 11/18/19 01:46 01:46 02:08 WBC 0.7 L* RBC 2.95 L Hgb 9.3 L Hct 27.6 L MCV 94 MCH 31.4 MCHC 33.5 RDW 19.1 H Plt Count 69 L Seg Neutrophils % 73.5 VBG pH 7.38 VBG pCO2 32.8 L VBG HCO3 18.8 L VBG Base Excess -5.6 Sodium 138.3 Potassium 3.7 Chloride 106 Carbon Dioxide 18 L Anion Gap 14 BUN 15 Creatinine 0.84 Est GFR ( Amer) > 60 Glucose 122 H Lactic Acid Calcium 8.8 Total Bilirubin 6.9 H AST 171 H Alkaline Phosphatase 323 H Total Protein 5.4 L Albumin 2.7 L Urine Color Urine Appearance Urine pH Ur Specific [place] Urine Protein Urine Glucose (UA) Urine Ketones Urine Blood Urine RBC (Auto) 11/18/19 11/18/19 11/18/19 02:08 05:18 05:30 WBC RBC Hgb Hct MCV MCH MCHC RDW Plt Count Seg Neutrophils % VBG pH VBG pCO2 VBG HCO3 VBG Base Excess Sodium Potassium Chloride Carbon Dioxide Anion Gap BUN Creatinine Est GFR ( Amer) Glucose Lactic Acid 4.9 H 3.3 H Calcium Total Bilirubin AST Alkaline Phosphatase Total Protein Albumin Urine Color TODD Urine Appearance CLEAR Urine pH 5.0 Ur Specific [place] 1.008 Urine Protein NEGATIVE Urine Glucose (UA) NEGATIVE Urine Ketones NEGATIVE Urine Blood SMALL H Urine RBC (Auto) 1 Impressions: Chest X-Ray 11/18/19 01:56 IMPRESSION: No acute disease. Critical Time Critical Time (minutes): 45 -: The care of a critically ill patient is dynamic. This note represents a static moment in the admission process. Orders and treatments may be given simultaneously and urgently, and time is not digital sales representative of the treatment process. This patient requires Critical Care secondary to life threatening organ or limb dysfunction. Without Critical Care services, the patient is at risk for increased mortality and morbidity.
[2019-11-18] MEDS: PIPERACILLIN SODIUM/TAZOBACTAM 3.375 GM in NORMAL SALINE 100 ML IV SCH ×3 (09:16→21:05)
[2019-11-18 11:03] LABS: PATH REVIEW PATHOLOGIST REVIEWED
--- NOTE | 2019-11-18 13:39 | Progress Note ---
Provider Note Provider Note: 64yo F with end stage, metastatic breast cancer involving her liver and lung. Patient currently being treated by Dr. Hussein at [facility] in [place] and received palliative paclitaxel at a reduced dose about 2 weeks ago. Her metastatic disease to her liver is significant and the patient was urged by her oncologist to consider palliative care/hospice from this point forward. Per the provider, the patient was not ready to have that discussion and has not followed up since. Evaluation last night was concerning for possible pneumonia as a source of her hypotension, however, rapid resolution of her lactic acidosis, positive response to fluid administration and her clear chest x-ray/lack of adventitious breath sounds do not support pneumonia. As her bilirubin is grossly elevated (fractionation pending) and no imaging of her abdomen was performed I will order a CT of the abdomen and pelvis with IV contrast today. This will allow us to look for any obvious pathology in the abdomen and provide an evaluation of the tumor burden in her liver. Should there be any evidence of biliary obstruction a PTC may be able to alleviate some of her symptoms. A long discussion was had with the patient regarding her resuscitation status, prognosis and options going forward. Unfortunately, because of her widely metastatic breast cancer she is not a candidate for liver transplantation. Additionally, should she decompensate, CPR will not change her terminal diagnosis. The patient desires additional time to think which will be given to her. She is currently a full code but I do believe with end stage breast cancer, a large tumor burden in her liver causing liver failure and a terminal prognosis there could be benefit to palliative care or hospice. Will update pending further discussion/decision by patient.
--- NOTE | 2019-11-18 14:11 | RADIOLOGY REPORT (SQ) ---
EXAM DESCRIPTION: CT ABD/PELVIS WITH IV ONLY COMPLETED DATE/TIME: 11/18/2019 1:39 pm REASON FOR STUDY: jaundice with known toney mets. EVal for obstruction COMPARISON: CT of the abdomen and pelvis with contrast from 03/27/[address] of the chest from 2018. TECHNIQUE: CT scan of the abdomen and pelvis performed using helical scanning technique with dynamic intravenous contrast injection. No oral contrast. Images reviewed with lung, soft tissue, and bone windows. Reconstructed coronal and sagittal MPR images reviewed. Delayed images for evaluation of the urinary system also acquired. All images stored on PACS. All CT scanners at this facility use dose modulation, iterative reconstruction, and/or weight based d osing when appropriate to reduce radiation dose to as low as reasonably achievable (ALARA). [facility]: Dose Right [facility]: CareDose [facility]: Dose Right [facility]: Teradose 4D [facility]: Moasis CONTRAST TYPE AND DOSE: Contrast/concentration: Isovue 350.00 mg/ml; Total Contrast Delivered: 81.0 ml; Total Saline Delivered: 68.0 ml RENAL FUNCTION: GFR > 60. RADIATION DOSE: CT Rad equipment meets quality standard of care and radiation dose reduction techniq ues were employed. CTDIvol: 13.0 - 13.3 mGy. DLP: 1439 mGy-cm.. LIMITATIONS: None. FINDINGS: LOWER CHEST: The heart is enlarged. There is no pericardial or sizable pleural effusion. LIVER: Diffuse heterogeneity of the hepatic parenchyma with innumerable nodular hyperdensities. The portal veins are patent. SPLEEN: No splenomegaly or splenic mass. PANCREAS: No acute abnormality of the pancreas. GALLBLADDER: No abnormality that is apparent on CT. ADRENAL GLANDS: No abnormality. RIGHT KIDNEY AND URETER: No solid masses. No calcifications. No hydronephrosis or hydroureter. LEFT KIDNEY AND URETER: No solid masses. No calcifications. No hydronephrosis or hydroureter. AORTA AND VESSELS: No aneurysm or dissection of the abdominal aorta. RETROPERITONEUM: No retroperitoneal adenopathy, hemorrhage or mass. BOWEL AND PERITONEAL CAVITY: No bowel obstruction, bowel wall thickening, pericolonic/perienteric inf lammation. No mesenteric adenopathy. APPENDIX: Normal. PELVIS: Trace amount of free fluid within the dependent portion of the cul de sac. The uterus is eunice gically absent. There is no abnormality of the adnexa that is apparent on CT. The urinary bladder i s nondistended. ABDOMINAL WALL: Mild anasarca. BONES: No acute findings. OTHER: No other finding. IMPRESSION: 1. Diffuse heterogeneity of the hepatic parenchyma with innumerable nodular hyperdensiti es consistent with metastases. 2. No bowel obstruction. 3. Trace amount of ascites. TECHNICAL DOCUMENTATION: JOB ID: [id number] Quality ID # [id number]: Final reports with documentation of one or more dose reduction techniques (e.g., Au tomated exposure control, adjustment of the mA and/or kV according to patient size, use of iterative reconstruction technique) 2010 [employer]- All Rights Reserved Reading location - IP/workstation name: [email or web address]
[2019-11-18] MEDS: POTASSIUM CHLORIDE 10 MEQ TABLET.ER PO ONE ×2 (14:51→16:57)
[2019-11-18] MEDS: FLUCONAZOLE 200 MG/NS RTU 200 MG/100 ML RTUPB IV SCH (14:52)
[2019-11-18] MEDS: NYSTATIN/DEXAMETH/DIPHEN SUSP 120 ML PO SCH ×4 (15:40→22:55)
[2019-11-18] MEDS ORDERED: POTASSIUM CHLORIDE 20 MEQ PACKET PO ONE (16:00)
[2019-11-18] MEDS: VANCOMYCIN HCL 1,000 MG in DEXTROSE 5%-WATER 250 ML IV SCH (18:30)
[2019-11-18] MEDS ORDERED: LORAZEPAM INJ 2 MG/1 ML VIAL IV PRN (18:55)
--- NOTE | 2019-11-18 18:57 | Progress Note ---
Provider Note Provider Note: Discussion had with family. Patient would like to be DNR/DNI and talk to palliative care about the possibility of hospice. Will continue ABX, antifungal, anxiety meds and diet. Palliative consult sent.
[2019-11-18] MEDS: PANTOPRAZOLE SODIUM 40 MG VIAL IV SCH (21:04)
[2019-11-18] MEDS: POTASSI CL 20 MEQ/50 ML RIDER 20 MEQ/50 ML RTUPB IV SCH ×2 (21:05→23:24)
[2019-11-19] MEDS: PIPERACILLIN SODIUM/TAZOBACTAM 3.375 GM in NORMAL SALINE 100 ML IV SCH ×3 (03:26→14:02)
[2019-11-19] MEDS: NORMAL SALINE 1000 ML 1,000 ML IV PRN (03:26)
[2019-11-19 04:40] LABS: HEMATOCRIT 23.3 % (36.0-47.0); MEAN CORPUSCULAR HEMOGLOBIN 31.5 pg (27.0-33.4); MEAN CORPUSCULAR HGB CONC 33.4 g/dL (32.0-36.0); MEAN CORPUSCULAR VOLUME 94 fl (80-97); RED BLOOD COUNT 2.47 10^6/uL (3.72-5.28); RED CELL DISTRIBUTION WIDTH 19.4 % (11.5-14.0)
[2019-11-19 04:44] LABS: INTERNATIONAL RATION (INR) 1.55; PROTHROMBIN TIME 18.7 SEC (11.4-15.4)
[2019-11-19 04:45] LABS: PARTIAL THROMBOPLASTIN TIME 42.1 SEC (23.5-35.8)
[2019-11-19 05:02] LABS: ALBUMIN 2.6 g/dL (3.5-5.0); ALKALINE PHOSPHATASE 201 U/L (38-126); ANION GAP 10 (5-19); ASPARTATE AMINO TRANSFERASE 107 U/L (14-36); BILIRUBIN,DIRECT 4.4 mg/dL (0.0-0.4); BILIRUBIN,TOTAL 5.3 mg/dL (0.2-1.3); BLOOD UREA NITROGEN 15 mg/dL (7-20); CALCIUM 7.5 mg/dL (8.4-10.2); CARBON DIOXIDE 17 mmol/L (22-30); CHLORIDE 118 mmol/L (98-107); GLUCOSE 79 mg/dL (75-110); PHOSPHORUS 2.5 mg/dL (2.5-4.5); POTASSIUM 3.8 mmol/L (3.6-5.0); TOTAL PROTEIN 5.6 g/dL (6.3-8.2)
[2019-11-19] MEDS: VANCOMYCIN HCL 1,000 MG in DEXTROSE 5%-WATER 250 ML IV SCH (05:09)
[2019-11-19 05:27] LABS: PLATELET COUNT 48 10^3/uL (150-450)
[2019-11-19 05:29] LABS: HEMOGLOBIN 7.8 g/dL (12.0-15.5)
[2019-11-19 05:40] LABS: ABSOLUTE LYMPHOCYTES# (MANUAL) 0.8 10^3/uL (0.5-4.7); ABSOLUTE MONOCYTES # (MANUAL) 0.3 10^3/uL (0.1-1.4); BAND NEUTROPHILS % (MANUAL) 1 % (3-5); BASOPHILS % (MANUAL) 0 % (0-2); EOSINOPHILS % (MANUAL) 0 % (0-6); LYMPHOCYTES % (MANUAL) 34 % (13-45); MONOCYTES % (MANUAL) 11 % (3-13); SEGMENTED NEUTROPHILS % (MAN) 54 % (42-78); TOTAL CELLS COUNTED 100
[2019-11-19 05:43] LABS: PLATELET COMMENT DECREASED
[2019-11-19 05:44] LABS: ANISOCYTOSIS 2+; OVALOCYTES SLIGHT
[2019-11-19 05:48] LABS: WHITE BLOOD COUNT 2.4 10^3/uL (4.0-10.5)
[2019-11-19] MEDS ORDERED: ALPRAZOLAM 0.5 MG TABLET PO PRN (09:07)
[2019-11-19] MEDS: FLUCONAZOLE 200 MG/NS RTU 200 MG/100 ML RTUPB IV SCH (10:29)
[2019-11-19] MEDS: PANTOPRAZOLE SODIUM 40 MG VIAL IV SCH (10:31)
[2019-11-19] MEDS: METOPROLOL TARTRATE 50 MG TABLET PO SCH ×2 (10:44→22:55)
[2019-11-19] MEDS: NYSTATIN/DEXAMETH/DIPHEN SUSP 120 ML PO SCH ×3 (10:45→18:02)
[2019-11-19] MEDS: MAGNESIUM SULFATE/D5W 1 GM/100 ML RTUPB IV SCH ×2 (10:48→11:54)
[2019-11-19] MEDS ORDERED: POTASSIUM PHOS,M-BASIC-D-BASIC 30 MMOL in NORMAL SALINE 500 ML IV ONE (11:00)
[2019-11-19] MEDS ORDERED: LIDOCAINE 2% VISCOUS SOLN 15 ML UDCUP PO PRN (11:03)
--- NOTE | 2019-11-19 12:12 | PDOC CRITICAL CARE PROG REPORT ---
General Date:: 11/19/19 ICU Day:: 2 Hospital Day:: 2 Resuscitation Status: Do Not Resuscitate Events in the past 12 to 24 Hours:: Patient was admitted yesterday with concern for sepsis in a neutropenic patient. She was found to be profoundly hypovolemic due to inability to swallow and nausea/loss of appetite. With aggressive resuscitation her BP normalized and she was feeling much better. After extensive discussion yesterday afternoon inv olving her oncologist, the patient/family and our team, the patient decided to make herself DNR/DNI and has requested palliative care to see her in order to initiate home hospice. Reason for ICU Addmission:: Hypotension, PNA, neutropenia - Medications: Medications reviewed and adjusted accordingly: Yes Physical Exam Vital Signs: Temp Pulse Resp BP Pulse Ox 98.7 F 122 H 30 H 139/79 H 99 11/19/19 08:00 11/19/19 08:00 11/19/19 11:00 11/19/19 10:15 11/19/19 11:00 Intake & Output 11/18/19 11/19/19 11/20/19 06:59 06:59 06:59 Intake Total 3370 5039 1100 Output Total 500 450 200 Balance 2870 4589 900 Weight 81.6 kg 84.9 kg Weight/Height Weight 84.9 kg Height 5 ft 6 in General appearance: PRESENT: no acute distress, well-developed Head exam: PRESENT: atraumatic, normocephalic Eye exam: PRESENT: conjunctiva pale, EOMI, PERRLA, scleral icterus Ear exam: PRESENT: normal external ear exam Mouth exam: PRESENT: moist, other - numerous aphthous ulcers and ulcerations in her posterior hypopharynx. Additionally, the mucosa is very red and inflamed. Throat exam: PRESENT: post pharyngeal erythema Neck exam: ABSENT: carotid bruit, JVD, lymphadenopathy, tenderness, tracheal deviation Respiratory exam: PRESENT: clear to auscultation esther. ABSENT: rales, rhonchi, wheezes Cardiovascular exam: PRESENT: RRR. ABSENT: diastolic murmur, rubs, systolic murmur Pulses: PRESENT: normal dorsalis pedis pul GI/Abdominal exam: PRESENT: normal bowel sounds, soft. ABSENT: distended, guarding, mass, organolmegaly, rebound, tenderness Rectal exam: PRESENT: deferred Extremities exam: ABSENT: calf tenderness, pedal edema Neurological exam: PRESENT: alert, awake, oriented to person, oriented to place, oriented to time, oriented to situation, CN II-XII grossly intact. ABSENT: motor sensory deficit Psychiatric exam: PRESENT: flat affect Skin exam: PRESENT: dry, jaundice, warm. ABSENT: cyanosis, erythema, rash Laboratory/Radiographs Laboratory Results: 11/19/19 04:13 11/19/19 04:13 11/19/19 11/19/19 04:13 04:13 WBC 2.4 L D RBC 2.47 L Hgb 7.8 L Hct 23.3 L MCV 94 MCH 31.5 MCHC 33.4 RDW 19.4 H Plt Count 48 L Seg Neutrophils % Not Reportable Sodium 145.2 H Potassium 3.8 Chloride 118 H Carbon Dioxide 17 L Anion Gap 10 BUN 15 Creatinine 0.76 Est GFR ( Amer) > 60 Glucose 79 Calcium 7.5 L Phosphorus 2.5 Magnesium 1.6 Total Bilirubin 5.3 H AST 107 H Alkaline Phosphatase 201 H Total Protein 5.6 L Albumin 2.6 L Impressions: Chest X-Ray 11/18/19 01:56 IMPRESSION: No acute disease. Abdomen/Pelvis CT 11/18/19 12:15 IMPRESSION: 1. Diffuse heterogeneity of the hepatic parenchyma with innumerable nodular hyperdensities consistent with metastases. 2. No bowel obstruction. 3. Trace amount of ascites. All labs, radiographs, diagnostic studies and EKGs were personally reviewed: Yes In addition, reports of radiographic and diagnostic studies were read: Yes Assessment and Plan - Diagnosis (1) Liver failure Qualifiers: Liver failure chronicity: acute Hepatic coma status: without hepatic coma Qualified Code(s): K72.00 - Acute and subacute hepatic failure without coma Is this a current diagnosis for this admission?: Yes (2) Breast CA Qualifiers: Breast location: unspecified site of breast Laterality: unspecified laterality Is this a current diagnosis for this admission?: Yes (3) Hypotension Is this a current diagnosis for this admission?: Yes (4) Neutropenia Qualifiers: Neutropenia type: secondary to cancer chemotherapy Qualified Code(s): D70.1 - Agranulocytosis secondary to cancer chemotherapy; T45.1X5A - Adverse effect of antineoplastic and immunosuppressive drugs, initial encounter Is this a current diagnosis for this admission?: Yes (5) Sepsis Qualifiers: Sepsis type: sepsis due to unspecified organism Sepsis acute organ dysfunction status: with acute organ dysfunction Is this a current diagnosis for this admission?: Yes Plan Summary: 64yo F with end stage breast cancer and new onset liver failure secondary to metastasis. Patient last received palliative chemotherapy 2 weeks ago and per her oncologist, she has been urged to discuss palliative care/hospice care. The patient's liver failure is not going to improve and she is not a transplant candidate due to her underlying malignancy. Her ulcerated pharynx and friable mucosa are concerning for a fungal infection so she was started on diflucan and nystatin mouthwash. Will also write for viscous lidocaine to hopefully dull the pain of swallowing enough to where she can eat a diet. Replaced electrolytes, DC IVF and awaiting palliative care consult. Critical Time Critical Time (minutes): 30 Level of Care: ICU Anticipated discharge: Hospice Within: within 72 hours -: 1. The care of a critical patient is a dynamic process. This note is a billing representative synopsis but static in nature. The timeframe for treatments given in order is not necessarily the actual time these treatments may have been done. 2. This patient requires critical care secondary to ongoing requirements for therapy not offered or safe outside the critical care environment. Transfer to a lower level of care will result in altered life or limb morbidity and mortality. 3. Multidisciplinary rounds completed. 4. ABCDE bundle addressed.
--- NOTE | 2019-11-19 12:34 | CDI QUERY ---
CDI Query CDI Review: Dear Provider, (name): To better reflect your patients severity of illness, morbidity, and resource utilization Please specify and document in the Progress Notes and Discharge Summary if you are monitoring / treating / evaluating any of the following conditions: The terms probable, suspected, likely, possible or still to be ruled out may be used if you are unable to determine the exact nature of a condition. Query Clinical indicators *PANCYTOPENIA DUE TO CHEMO OR DRUGS? UNABLE TO DETERMINE? OTHER ANEMIA? WBC 0.7 RBC 2.95 PLT 69 PT ON CHEMO DOCUMENTED NEUTROPENIA Thank you, Clinical Documentation Physician Advisors TAISHA CookN RN TAISHA Da SilvaN financial administrative assistant [phone] Office [phone]
[2019-11-19] MEDS ORDERED: DEXTROSE 5%-1/2 NORMAL SALINE 1,000 ML IV PRN (16:54)
[2019-11-19] MEDS ORDERED: DEXTROSE 40% GEL 15 GM TUBE PO PRN ×2 (16:55)
[2019-11-19] MEDS ORDERED: GLUCAGON,HUMAN RECOMB 1 MG INJ IM PRN (16:55)
[2019-11-19] MEDS ORDERED: DEXTROSE 50%-WATER 25 GM/50 ML DISP.SYRIN IV PRN ×2 (16:55)
[2019-11-19] MEDS ORDERED: OXYCODONE HCL IR 5 MG TABLET PO PRN (16:59)
[2019-11-19] MEDS ORDERED: ACETAMINOPHEN 325 MG TABLET PO PRN (16:59)
[2019-11-19] MEDS ORDERED: ONDANSETRON HCL INJ/PF 4 MG/2 ML SDV IV PRN (17:05)
[2019-11-19] MEDS ORDERED: PROMETHAZINE HCL INJ 25 MG/1 ML VIAL IV PRN (17:05)
--- NOTE | 2019-11-19 17:33 | PDOC PROGRESS REPORT ---
Subjective Progress Note for:: 11/19/19 Subjective:: Change of service from ICU to hospitalist service Received signout from costume draper. Patient is a 64-year-old female with a history of stage IV breast cancer with mets to liver and lungs complicated by liver failure who presents to the hospital with complaints of malaise, fatigue, poor p.o. intake, cough sore throat. She was noted to be hypotensive in the 80s systolic. She has not been febrile throughout her stay in the hospital according to vital signs documented in chart reviewed. Given initial hypotension patient was sent to the ICU with concern for shock [suspected more to be due to hypovolemia per signout than sepsis] though no source of infection has been found so far. However patient was empirically started on antibiotics for possible occult infection. Patient received Levophed for about 2 hours after which she was weaned off Levophed and her blood pressure responded nicely to fluid resuscitation. Blood work revealed liver failure with elevated INR, thrombocytopenia, hypoalbuminemia, transaminitis and hyperbilirubinemia. Patient is not a liver transplant candidate given her active malignancy. While patient was in the ICU, discussion was had between palliative care, patient, patient's family along with patient's primary oncologist who recommended palliation and possible hospice care. The family and patient have chosen for DNR/DNI status, no aggressive measures such as IV pressors or invasive procedures which have confirmed the patient myself today. Patient still not decided on hospice as of yet though we will meet again tomorrow with palliative team for further discussion. Patient was started on Diflucan with viscous lido carlitos for aphthous ulcers in posterior pharynx limited food consumption. Patient currently still complains of soreness in throat and pain is in abdomen. Reason For Visit: SEPSIS,NEUTROPENIA,ACIDOSIS Physical Exam Vital Signs: Temp Pulse Resp BP Pulse Ox 98.7 F 122 H 30 H 139/79 H 99 11/19/19 08:00 11/19/19 08:00 11/19/19 15:00 11/19/19 10:15 11/19/19 15:00 Intake & Output 11/18/19 11/19/19 11/20/19 06:59 06:59 06:59 Intake Total 3370 5039 1800 Output Total 500 450 200 Balance 2870 4589 1600 Weight 81.6 kg 84.9 kg General appearance: PRESENT: no acute distress, cooperative Neck exam: ABSENT: JVD Respiratory exam: PRESENT: crackles - Mild basilar rales, unlabored. ABSENT: tachypnea, wheezes GI/Abdominal exam: PRESENT: distended, normal bowel sounds, organolmegaly - Hepatomegaly, soft, tenderness. ABSENT: firm, guarding, rebound, rigid Extremities exam: PRESENT: pedal edema Results Laboratory Results: 11/19/19 04:13 11/19/19 04:13 11/19/19 11/19/19 04:13 04:13 WBC 2.4 L D RBC 2.47 L Hgb 7.8 L Hct 23.3 L MCV 94 MCH 31.5 MCHC 33.4 RDW 19.4 H Plt Count 48 L Seg Neutrophils % Not Reportable Sodium 145.2 H Potassium 3.8 Chloride 118 H Carbon Dioxide 17 L Anion Gap 10 BUN 15 Creatinine 0.76 Est GFR ( Amer) > 60 Glucose 79 Calcium 7.5 L Phosphorus 2.5 Magnesium 1.6 Total Bilirubin 5.3 H AST 107 H Alkaline Phosphatase 201 H Total Protein 5.6 L Albumin 2.6 L 11/18/19 06:03 Sputum Gram Stain - Final Impressions: Chest X-Ray 11/18/19 01:56 IMPRESSION: No acute disease. Abdomen/Pelvis CT 11/18/19 12:15 IMPRESSION: 1. Diffuse heterogeneity of the hepatic parenchyma with innumerable nodular hyperdensities consistent with metastases. 2. No bowel obstruction. 3. Trace amount of ascites. Assessment and Plan - Diagnosis (1) Subacute liver failure without hepatic coma Is this a current diagnosis for this admission?: Yes (2) Pancytopenia due to antineoplastic chemotherapy Is this a current diagnosis for this admission?: Yes (3) Hypotension Qualifiers: Hypotension type: hypotension due to hypovolemia Qualified Code(s): I95.89 - Other hypotension; E86.1 - Hypovolemia Is this a current diagnosis for this admission?: Yes (4) Neutropenia associated with mucositis due to antineoplastic therapy Is this a current diagnosis for this admission?: Yes (5) Metastatic breast cancer Is this a current diagnosis for this admission?: Yes - Plan Summary Summary: Liver failure is secondary to metastatic neoplasm infiltrating liver Not a candidate for transplant given active malignancy Ideally I recommend palliative care and hospice at this point will patient is not yet decided on hospice. We will continue palliative care conversations which is scheduled for tomorrow Heme-onc consulted Antiemetics, encourage p.o. intake Pain control IV fluids Continue Viscous Lidocaine, Magic mouthwash, and Diflucan from mucositis/ulcer ations possible fungal etiology DNR/DNI. No invasive measures including IV pressors, central line placement/ invasive procedures but otherwise continue treatment. - Time Time Spent with patient: 25-34 minutes
--- NOTE | 2019-11-19 17:38 | ADVANCED CARE ---
- Diagnosis (1) Subacute liver failure without hepatic coma Diagnosis Current: Yes (2) Pancytopenia due to antineoplastic chemotherapy Diagnosis Current: Yes (3) Hypotension Diagnosis Current: Yes (4) Neutropenia associated with mucositis due to antineoplastic therapy Diagnosis Current: Yes (5) Metastatic breast cancer Diagnosis Current: Yes Attendance: Patient, myself and primary nurse Resuscitation Status: Do Not Resuscitate Discussion: We discussed patient's overall conditions including her stage IV metastatic breast cancer with mets to liver and reported mets to the lungs, and her liver failure which is not amenable to treatment as she is on a transplant candidate given active malignancy. Also reviewed the discussions with palliative care. Confirmed with patient that she wants to be a DNR/DNI status. Does not want to be intubated under any circumstances. Of note, patient is not yet decided on pursuing hospice care at this time per the saying that she would have further conversations with her partner and other family members as well as the palliative care team tomorrow to further discuss this. Patient is an ideal hospice candidate given the stage for malignancy with liver failure. Patient does want to continue with treatment at this time including antibiotics, oral and IV medication, IV fluids but does NOT want overtly aggressive measures such as IV pressors, central line placement, paracentesis, and invasive procedures. Further discussions with the palliative team to commence tomorrow. Time Spent: 25 mins
[2019-11-19] MEDS: AMOXICILLIN TR/POT CLAVULANATE ES 600-42.9 MG/5 ML 75 ML PO SCH (23:35)
[2019-11-19] MEDS ORDERED: AMOXICILLIN TR/POT CLAVULANATE ES 600-42.9 MG/5 ML 75 ML ONE (23:43)
[2019-11-20 06:26] LABS: HEMATOCRIT 25.9 % (36.0-47.0); HEMOGLOBIN 8.7 g/dL (12.0-15.5); MEAN CORPUSCULAR HEMOGLOBIN 30.9 pg (27.0-33.4); MEAN CORPUSCULAR HGB CONC 33.4 g/dL (32.0-36.0); MEAN CORPUSCULAR VOLUME 92 fl (80-97); RED BLOOD COUNT 2.81 10^6/uL (3.72-5.28); RED CELL DISTRIBUTION WIDTH 19.6 % (11.5-14.0)
[2019-11-20 06:57] LABS: ALBUMIN 2.3 g/dL (3.5-5.0); ALKALINE PHOSPHATASE 272 U/L (38-126); ANION GAP 10 (5-19); ASPARTATE AMINO TRANSFERASE 169 U/L (14-36); BILIRUBIN,DIRECT 5.6 mg/dL (0.0-0.4); BILIRUBIN,TOTAL 6.7 mg/dL (0.2-1.3); BLOOD UREA NITROGEN 17 mg/dL (7-20); CARBON DIOXIDE 17 mmol/L (22-30); CHLORIDE 119 mmol/L (98-107); GLUCOSE 106 mg/dL (75-110); PHOSPHORUS 2.7 mg/dL (2.5-4.5); POTASSIUM 3.5 mmol/L (3.6-5.0)
[2019-11-20 07:01] LABS: PLATELET COUNT 59 10^3/uL (150-450); WHITE BLOOD COUNT 15.2 10^3/uL (4.0-10.5)
[2019-11-20 07:04] LABS: ABSOLUTE LYMPHOCYTES# (MANUAL) 2.3 10^3/uL (0.5-4.7); ABSOLUTE MONOCYTES # (MANUAL) 0.8 10^3/uL (0.1-1.4); BAND NEUTROPHILS % (MANUAL) 8 % (3-5); BASOPHILS % (MANUAL) 0 % (0-2); EOSINOPHILS % (MANUAL) 0 % (0-6); LYMPHOCYTES % (MANUAL) 15 % (13-45); METAMYELOCYTES % (MANUAL) 1 % (0-1); MONOCYTES % (MANUAL) 5 % (3-13); NUCLEATED RED BLOOD CELLS 2 /100 WBC (0); SEGMENTED NEUTROPHILS % (MAN) 71 % (42-78); TOTAL CELLS COUNTED 100
[2019-11-20 07:08] LABS: ANISOCYTOSIS 2+; PLATELET COMMENT DECREASED; POLYCHROMASIA SLIGHT; TOXIC GRANULATION 1+; TOXIC VACUOLATION PRESENT
[2019-11-20] MEDS ORDERED: POTASSIUM CHLORIDE 10 MEQ TABLET.ER PO ONE (08:04)
[2019-11-20] MEDS ORDERED: 1/2 NORMAL SALINE 1,000 ML IV ONE (08:05)
[2019-11-20] MEDS ORDERED: DEXTROSE 5%-1/2 NORMAL SALINE 1,000 ML IV PRN (08:05)
--- NOTE | 2019-11-20 08:43 | PDOC CONSULTATION ---
Consultation Consult Date: 11/20/19 Provider Consulted: KANIKA MELTON Consult reason:: Hematology/Oncology consultation was requested for patient on active chemo for metastatic breast cancer. History of Present Illness Admission Date/PCP: 11/18/19 03:49 ARACELIS STORM MD History of Present Illness: HUMBERTO DRISCOLL is a 64 year old female who followed with Dr. Chiang and is now seeing Dr. Gould in [place] for active cancer treatment. 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 Most recently, Navalbine and Taxotere, acccording to family. However, recent scans have shown progression with widespread metastatic disease. Dr. Gould has recommended Hospice with no further aggressive therapy. Patient and family spoke with Michelle at [facility] yesterday, as well as with Dr. Diop. Patient is now a DNR and family agrees with Home Hospice. This morning, nurses report that patient was up all night agitated, restless, hallucinating. Currently, she is sleeping and does not respond to voice or touc h, except for small groan. Past Medical History Cardiac Medical History: Denies: Coronary Artery Disease, Myocardial Infarction, Hypertension Pulmonary Medical History: Reports: Pneumonia - October 2016 Denies: Asthma, Bronchitis, Chronic Obstructive Pulmonary Disease (COPD) Neurological Medical History: Denies: Seizures GI Medical History: Denies: Hepatitis, Hiatal Hernia Musculoskeltal Medical History: Reports: Arthritis - Generalized Hematology: Denies: Anemia, Sickle Cell Disease Past Surgical History Past Surgical History: Reports: Mastectomy Denies: Amputation, Pacemaker Social History Lives with: Alone Smoking Status: Former Smoker Electronic Cigarette use?: No Drugs: None Hx Prescription Drug Abuse: No - Advance Directive Resuscitation Status: Do Not Resuscitate Family History Family History: Reviewed & Not Pertinent Parental Family History Reviewed: No Children Family History Reviewed: No Sibling(s) Family History Reviewed.: No Medication/Allergy Home Medications: Alprazolam [Xanax 0.5 mg Tablet] 0.5 mg PO DAILY 01/09/17 Metoprolol Succinate 100 mg PO DAILY 01/09/17 Simvastatin 40 mg PO DAILY 01/09/17 Letrozole [Femara 2.5 Mg Tablet] 2.5 mg PO DAILY 10/15/19 Venlafaxine HCl [Effexor 75 mg Tablet] 75 mg PO DAILY 10/15/19 Lisinopril [Prinivil 5 mg Tablet] 2.5 mg PO DAILY 11/18/19 Oxycodone HCl [Oxy-Ir 5 mg Tablet] 5 mg PO Q8HP PRN 11/18/19 Oxycodone HCl [Oxycodone HCl 10 MG Tablet] 10 mg PO Q8HP PRN 11/18/19 Pantoprazole Sodium [Protonix [address] Tablet] 40 mg PO QAM 11/18/19 Allergies/Adverse Reactions: pseudoephedrine Allergy (Verified 10/19/19 12:27) Sulfa (Sulfonamide Antibiotics) Allergy (Verified 01/09/17 13:15) Review of Systems ROS unobtainable: Due to mental status Physical Exam Vital Signs: Temp Pulse Resp BP Pulse Ox 98.5 F 116 H 17 139/79 H 96 11/20/19 00:00 11/20/19 00:00 11/20/19 00:00 11/19/19 10:15 11/20/19 00:00 Intake & Output 11/19/19 11/20/19 11/21/19 06:59 06:59 06:59 Intake Total 5039 1800 Output Total 450 200 Balance 4589 1600 Weight 84.9 kg 86.7 kg General appearance: PRESENT: no acute distress, well-developed, well-nourished Exam: 64 year old female. Resting comfortably in bed. Does not respond to voice or touch. Head exam: PRESENT: atraumatic, normocephalic Respiratory exam: PRESENT: clear to auscultation esther, unlabored Cardiovascular exam: PRESENT: RRR GI/Abdominal exam: PRESENT: soft, other - large abdominal girth, but no tense ascites. Extremities exam: PRESENT: +1 edema Musculoskeletal exam: PRESENT: normal inspection Neurological exam: PRESENT: other - Sleeping soundly Psychiatric exam: PRESENT: other - As per HPI Skin exam: PRESENT: other - echymoses right anticubital Results Laboratory Results: 11/20/19 06:06 11/20/19 06:06 11/20/19 11/20/19 11/20/19 06:06 06:06 06:06 WBC 15.2 H D RBC 2.81 L Hgb 8.7 L Hct 25.9 L MCV 92 MCH 30.9 MCHC 33.4 RDW 19.6 H Plt Count 59 L Seg Neutrophils % Not Reportable Sodium 145.7 H Potassium 3.5 L Chloride 119 H Carbon Dioxide 17 L Anion Gap 10 BUN 17 Creatinine 0.69 Est GFR ( Amer) > 60 Glucose 106 Calcium 8.0 L Phosphorus 2.7 Total Bilirubin 6.7 H AST 169 H Alkaline Phosphatase 272 H Ammonia 14.9 Total Protein 5.0 L Albumin 2.3 L 11/18/19 06:03 Sputum Gram Stain - Final 11/18/19 02:25 Throat Throat Culture - Final GREATLY REDUCED NORMAL DELIA Impressions: Chest X-Ray 11/18/19 01:56 IMPRESSION: No acute disease. Abdomen/Pelvis CT 11/18/19 12:15 IMPRESSION: 1. Diffuse heterogeneity of the hepatic parenchyma with innumerable nodular hyperdensities consistent with metastases. 2. No bowel obstruction. 3. Trace amount of ascites. Status: Image reviewed by me Assessment & Plan - Diagnosis (1) Metastatic breast cancer Is this a current diagnosis for this admission?: Yes Plan: Discussed at length with Dr. Diop and family. All are in agreement with home Hospice. This is to be arranged today. She may be having terminal agitation. (2) Neutropenia associated with mucositis due to antineoplastic therapy Is this a current diagnosis for this admission?: Yes Plan: Now resolved. OK to access port if needed today for meds. - Plan Summary Plan Summary: I would NOT give further IV fluids, lab draws, etc. Palliative and comfort treatments only. Discharge KRYSTIN with Hospice.
[2019-11-20] MEDS: METOPROLOL TARTRATE 50 MG TABLET PO SCH (09:03)
[2019-11-20] MEDS: PANTOPRAZOLE SODIUM 40 MG VIAL IV SCH (09:03)
[2019-11-20] MEDS ORDERED: ONDANSETRON 4 MG TAB.RAPDIS PO PRN (10:06)
[2019-11-20] MEDS ORDERED: HYOSCYAMINE SULFATE 0.125 MG TABLET PO PRN (10:06)
[2019-11-20] MEDS ORDERED: PROMETHAZINE HCL 25 MG TABLET PO PRN (10:06)
[2019-11-20] MEDS ORDERED: LORAZEPAM 1 MG TABLET PO PRN (10:06)
[2019-11-20] MEDS ORDERED: MAG HYDROX/AL HYDROX/SIMETH SUSP 30 ML UDCUP PO PRN (10:08)
--- NOTE | 2019-11-20 10:18 | ADVANCED CARE ---
- Diagnosis (1) Subacute liver failure without hepatic coma Diagnosis Current: Yes (2) Pancytopenia due to antineoplastic chemotherapy Diagnosis Current: Yes (3) Hypotension Diagnosis Current: Yes (4) Neutropenia associated with mucositis due to antineoplastic therapy Diagnosis Current: Yes (5) Metastatic breast cancer Diagnosis Current: Yes Resuscitation Status: Do Not Resuscitate Discussion: Notified by Dr. Dwyer that she had spoken to family who have decided on proceeding with hospice care for Lilian at this time. I Evaluated patient this morning. Received report from nurse the patient has been having several episodes of significant confusion. I assessed patient for myself and patient was alert and oriented to self and time but did not know where she was. She also was clearly confused and kept on stating that we have been preventing people from coming to see her and that we have prevented her family members from getting past the door to see her. She states that we have allowed her partner Lorri see her for the last 3 days and that she has not seen any family member for the last 3 days because we keep preventing him from getting through the door. Of course, we have done no such thing. Patient also had trouble concentrating during interaction on the conversation regarding her plan of care. I called patient's partner Lorri who confirms that she and her patient's brother along with her mother when the hospital yesterday and saw patient. She also acknowledged that she is Lilian Dobbins's partner and acknowledged that she has noted patient has been getting confused increasingly. She acknowledges that she as well as patient's family members have come to the conclusion and wants to proceed with home hospice care at this time. She informed me the patient's other family members are patient's mother Louisa Garsia and brother Nicholas Dobbins who are all in agreement about hospice care. She provided me with a contact information and to call patient's brother Nicholas will also confirms that he and patient's mother are all in agreement that Lorri should be the decision maker for patient and that they are all in agreement with pursuing home hospice care for patient at this time. He fully understands patient's current medical situation and understand that she is terminal and at end-of-life at this point. We will respect their wishes and proceed with hospice care. Time Spent: 25 mins
--- NOTE | 2019-11-20 11:24 | PDOC DISCHARGE SUMMARY ---
Impression - Admit/DC Date/PCP Admission Date/Primary Care Provider: 11/18/19 03:49 ARACELIS STORM MD Discharge Date: 11/20/19 - Discharge Diagnosis (1) Subacute liver failure without hepatic coma Is this a current diagnosis for this admission?: Yes (2) Pancytopenia due to antineoplastic chemotherapy Is this a current diagnosis for this admission?: Yes (3) Hypotension Is this a current diagnosis for this admission?: Yes (4) Neutropenia associated with mucositis due to antineoplastic therapy Is this a current diagnosis for this admission?: Yes (5) Metastatic breast cancer Is this a current diagnosis for this admission?: Yes - Assessment Summary: Patient was admitted to the ICU upon presentation given her hypotension. She had complained of cough at that time as well and chest x-ray was done which showed no evidence of pneumonia. Patient was however admitted with concern for shock secondary to either sepsis versus hypovolemia as patient was not tolerating p.o. intake at that time mostly due to mucositis with aphthous ulcers and her malignancy. She was noted to be pancytopenic secondary to her chemotherapy. No clear source of infection was noted as of yet making the diagnosis of sepsis somewhat uncertain. Patient was taken to the ICU and started on Levophed which she required only for about 2 hours at a low dose and subsequently blood pressure responded nicely to IV fluid resuscitation after which Levophed was discontinued. Patient's blood pressure has held within normal limits ever since. Patient was also empirically started on antibiotics with concern for an occult infection given patient's immunocompromise state. She was started on antifungal, oral numbing agents to help treat her mucositis associated with neutropenia. Patient was noted to be in significant severe liver failure with elevated INR, hypoalbuminemia, thrombocytopenia and transaminitis with elevated liver enzymes. CT of the abdomen and pelvis was done which showed significant metastasis of her breast malignancy to the liver which now appears to have nodular echotexture in several parts. It is suspected that patient's liver failure is likely more subacute or possibly even chronic secondary to known metastatic infiltration of her breast cancer in her liver. Patient is noted can do it for liver transplant given her active malignancy. While patient was in ICU, discussion was held between the garden consultant, palliative care medical social consultant, patient, patient's family and patient's primary oncologist and patient was made DNR/DNI status will plan to pursue further palliative care. Patient was later downgraded to the floor. I have had multiple discussion with patient's and other family members. Oncology was also consulted who verified patient's family has opted for hospice care at this point. Patient today is very confused with very brief lucid periods. There is a possibility that patient's confusion may be from possible malignancy metastasis to the [employer] though MRI has not been done to confirm this. Given patient's overall poor prognosis with stage IV metastatic breast cancer causing liver failure and poor candidacy for liver transplantation, patient is an ideal hospice candidate. I have confirmed with patient's partner Lorri, patient's brother Nicholas and patient's mother Louisa who all wish to proceed with home hospice at this point. Patient is being discharged home for hospice. - Additional Information Resuscitation Status: Do Not Resuscitate Referrals: [facility] [Outside] Prescriptions: Lorazepam [Ativan 1 mg Tablet] 1 mg PO Q4HP PRN #14 tablet PRN Reason: Fluconazole [Diflucan 100 mg Tablet] 100 mg PO DAILY 5 Days #5 tablet Hyoscyamine Sulfate [Levsin 0.125 Tablet] 0.125 mg PO Q4HP PRN #20 tablet PRN Reason: Metoprolol Tartrate [Lopressor 50 mg Tablet] 50 mg PO Q12 #30 tablet Mag Hydrox/Al Hydrox/Simeth [Maalox Plus Susp 30 Udcup] 30 ml PO Q6HP PRN #15 udc PRN Reason: Heartburn Oxycodone HCl [Oxy-Ir 5 mg Tablet] 1 - 2 tab PO Q4HP PRN #15 tablet PRN Reason: Promethazine HCl [Phenergan 25 mg Tablet] 25 mg PO Q4HP PRN #20 tablet PRN Reason: Lidocaine HCl [Xylocaine 2% Viscous Soln 20 ml Udcup] 15 ml PO Q4HP PRN #60 udc PRN Reason: Ondansetron [Zofran Odt 4 mg Tablet] 4 mg PO Q4HP PRN #20 tab.rapdis PRN Reason: For Nausea/Vomiting Home Medications: Venlafaxine HCl [Effexor 75 mg Tablet] 75 mg PO DAILY 10/15/19 Lisinopril [Prinivil 5 mg Tablet] 2.5 mg PO DAILY 11/18/19 Pantoprazole Sodium [Protonix [address] Tablet] 40 mg PO QAM 11/18/19 Fluconazole [Diflucan 100 mg Tablet] 100 mg PO DAILY 5 Days #5 tablet 11/20/19 Hyoscyamine Sulfate [Levsin 0.125 Tablet] 0.125 mg PO Q4HP PRN #20 tablet 11/20 Lidocaine HCl [Xylocaine 2% Viscous Soln 20 ml Udcup] 15 ml PO Q4HP PRN #60 udc 11/20/19 Lorazepam [Ativan 1 mg Tablet] 1 mg PO Q4HP PRN #14 tablet 11/20/19 Mag Hydrox/Al Hydrox/Simeth [Maalox Plus Susp 30 Udcup] 30 ml PO Q6HP PRN #15 udc 11/20/19 Metoprolol Tartrate [Lopressor 50 mg Tablet] 50 mg PO Q12 #30 tablet 11/20/19 Ondansetron [Zofran Odt 4 mg Tablet] 4 mg PO Q4HP PRN #20 tab.rapdis 11/20/19 Oxycodone HCl [Oxy-Ir 5 mg Tablet] 1 - 2 tab PO Q4HP PRN #15 tablet 11/20/19 Promethazine HCl [Phenergan 25 mg Tablet] 25 mg PO Q4HP PRN #20 tablet 11/20/19 History of Present Illiness History of Present Illness: HUMBERTO DRISCOLL is a 64 year old female with PMHx of breast CA s/p mastectomy, currently on chemotherapy, who presented to the ED with complaints of productive cough, congestion, sore throat, fever, chills, weakness, "small" amount of diarrhea, anorexia, weakness and general malaise that started 3-4 days ago. Her most recent chemotherapy treatments was 2 weeks ago. She is initially assessed in the ED with her partner at the bedside. Her partner states she has very poor PO intake over the past 3 days and has not eaten anything at all yesterday. Pt states her normal SPB is usually ~110-120; she has a SBP of 85 and tachy to 120s on assessment in ED. She was noted to cough up copious amounts of thick clear mucous. She denies nausea or vomiting, headache, CP, palpitation. Pt will be admitted to ICU for treatment of sepsis, hypotension and PNA Physical Exam Vital Signs: Temp Pulse Resp BP Pulse Ox 98.9 F 109 H 20 115/61 91 L 11/20/19 07:57 11/20/19 07:57 11/20/19 07:57 11/20/19 07:57 11/20/19 07:57 Intake & Output 11/19/19 11/20/19 11/21/19 06:59 06:59 06:59 Intake Total 5039 1800 Output Total 450 200 Balance 4589 1600 Weight 84.9 kg 86.7 kg General appearance: PRESENT: no acute distress Neck exam: ABSENT: JVD Respiratory exam: PRESENT: clear to auscultation esther Cardiovascular exam: PRESENT: +S1, +S2 GI/Abdominal exam: PRESENT: distended, normal bowel sounds, organolmegaly, soft, tenderness. ABSENT: guarding, rebound, rigid Neurological exam: PRESENT: alert, awake, oriented to person, oriented to time. ABSENT: oriented to place Psychiatric exam: PRESENT: agitated, other - Confused Focused psych exam: PRESENT: delusional, restlessness Skin exam: PRESENT: jaundice Results Laboratory Results: WBC 15.2 10^3/uL (4.0-10.5) H D 11/20/19 06:06 RBC 2.81 10^6/uL (3.72-5.28) L 11/20/19 06:06 Hgb 8.7 g/dL (12.0-15.5) L 11/20/19 06:06 Hct 25.9 % (36.0-47.0) L 11/20/19 06:06 MCV 92 fl (80-97) 11/20/19 06:06 MCH 30.9 pg (27.0-33.4) 11/20/19 06:06 MCHC 33.4 g/dL (32.0-36.0) 11/20/19 06:06 RDW 19.6 % (11.5-14.0) H 11/20/19 06:06 Plt Count 59 10^3/uL (150-450) L 11/20/19 06:06 Lymph % (Auto) Not Reportable 11/20/19 06:06 [place] % (Auto) Not Reportable 11/20/19 06:06 Eos % (Auto) Not Reportable 11/20/19 06:06 Baso % (Auto) Not Reportable 11/20/19 06:06 Absolute Neuts (auto) Not Reportable 11/20/19 06:06 Absolute Lymphs (auto) Not Reportable 11/20/19 06:06 Absolute Monos (auto) Not Reportable 11/20/19 06:06 Absolute Eos (auto) Not Reportable 11/20/19 06:06 Absolute Basos (auto) Not Reportable 11/20/19 06:06 Total Counted 100 11/20/19 06:06 Seg Neutrophils % Not Reportable 11/20/19 06:06 Seg Neuts % (Manual) 71 % (42-78) 11/20/19 06:06 Band Neutrophils % 8 % (3-5) H 11/20/19 06:06 Lymphocytes % (Manual) 15 % (13-45) 11/20/19 06:06 Monocytes % (Manual) 5 % (3-13) 11/20/19 06:06 Eosinophils % (Manual) 0 % (0-6) 11/20/19 06:06 Basophils % (Manual) 0 % (0-2) 11/20/19 06:06 Metamyelocytes % 1 % (0-1) 11/20/19 06:06 Abs Neuts (Manual) 12.2 10^3/uL (1.7-8.2) H 11/20/19 06:06 Abs Lymphs (Manual) 2.3 10^3/uL (0.5-4.7) 11/20/19 06:06 Abs Monocytes (Manual) 0.8 10^3/uL (0.1-1.4) 11/20/19 06:06 Absolute Eos (Manual) 0.0 10^3/uL (0.0-0.6) 11/20/19 06:06 Abs Basophils (Manual) 0.0 10^3/uL (0.0-0.2) 11/20/19 06:06 Nucleated RBCs 2 /100 WBC (0) 11/20/19 06:06 Toxic Granulation 1+ 11/20/19 06:06 Toxic Vacuolation PRESENT 11/20/19 06:06 Large Platelets PRESENT 11/18/19 05:30 Platelet Comment DECREASED 11/20/19 06:06 Polychromasia SLIGHT 11/20/19 06:06 Anisocytosis 2+ 11/20/19 06:06 Tear Drop Cells SLIGHT 11/18/19 01:46 Ovalocytes SLIGHT 11/19/19 04:13 [place] Cells SLIGHT 11/18/19 01:46 Schistocytes SLIGHT 11/18/19 01:46 PT 18.7 SEC (11.4-15.4) H 11/19/19 04:13 INR 1.55 11/19/19 04:13 APTT 42.1 SEC (23.5-35.8) H 11/19/19 04:13 VBG pH 7.38 (7.30-7.42) 11/18/19 02:08 VBG pCO2 32.8 mmHg (35-63) L 11/18/19 02:08 VBG HCO3 18.8 mmol/L (20-32) L 11/18/19 02:08 VBG Base Excess -5.6 mmol/L 11/18/19 02:08 Sodium 145.7 mmol/L (137-145) H 11/20/19 06:06 Potassium 3.5 mmol/L (3.6-5.0) L 11/20/19 06:06 Chloride 119 mmol/L (98-107) H 11/20/19 06:06 Carbon Dioxide 17 mmol/L (22-30) L 11/20/19 06:06 Anion Gap 10 (5-19) 11/20/19 06:06 BUN 17 mg/dL (7-20) 11/20/19 06:06 Creatinine 0.69 mg/dL (0.52-1.25) 11/20/19 06:06 Est GFR ( Amer) > 60 (>60) 11/20/19 06:06 Est GFR (MDRD) Non-Af > 60 (>60) 11/20/19 06:06 Glucose 106 mg/dL (75-110) 11/20/19 06:06 POC Glucose 134 mg/dL (70-110) H 11/18/19 02:17 Lactic Acid 2.7 mmol/L (0.7-2.1) H 11/18/19 08:01 Calcium 8.0 mg/dL (8.4-10.2) L 11/20/19 06:06 Phosphorus 2.7 mg/dL (2.5-4.5) 11/20/19 06:06 Magnesium 1.6 mg/dL (1.6-2.3) 11/19/19 04:13 Total Bilirubin 6.7 mg/dL (0.2-1.3) H 11/20/19 06:06 Direct Bilirubin 5.6 mg/dL (0.0-0.4) H 11/20/19 06:06 Neonat Total Bilirubin Not Reportable 11/20/19 06:06 Neonat Direct Bilirubin Not Reportable 11/20/19 06:06 Neonat Indirect Bili Not Reportable 11/20/19 06:06 AST 169 U/L (14-36) H 11/20/19 06:06 ALT 61 U/L (<35) 11/20/19 06:06 Alkaline Phosphatase 272 U/L (38-126) H 11/20/19 06:06 Ammonia 14.9 umol/L (9-33) 11/20/19 06:06 Total Protein 5.0 g/dL (6.3-8.2) L 11/20/19 06:06 Albumin 2.3 g/dL (3.5-5.0) L 11/20/19 06:06 Urine Color TODD 11/18/19 05:18 Urine Appearance CLEAR 11/18/19 05:18 Urine pH 5.0 (5.0-9.0) 11/18/19 05:18 Ur Specific [place] 1.008 11/18/19 05:18 Urine Protein NEGATIVE mg/dL (NEGATIVE) 11/18/19 05:18 Urine Glucose (UA) NEGATIVE mg/dL (NEGATIVE) 11/18/19 05:18 Urine Ketones NEGATIVE mg/dL (NEGATIVE) 11/18/19 05:18 Urine Blood SMALL (NEGATIVE) H 11/18/19 05:18 Urine Nitrite (Reflex) NEGATIVE (NEGATIVE) 11/18/19 05:18 Urine Bilirubin NEGATIVE (NEGATIVE) 11/18/19 05:18 Urine Urobilinogen NEGATIVE mg/dL (<2.0) 11/18/19 05:18 Leukocyte Esterase Rfl NEGATIVE (NEGATIVE) 11/18/19 05:18 Urine RBC (Auto) 1 /HPF 11/18/19 05:18 U Hyaline Cast (Auto) 3 /LPF 11/18/19 05:18 Urine WBC (Reflex) 2 /HPF 11/18/19 05:18 Squamous Epi Cells Auto 1 /HPF 11/18/19 05:18 Urine Mucus (Auto) RARE /LPF 11/18/19 05:18 Urine Ascorbic Acid NEGATIVE (NEGATIVE) 11/18/19 05:18 Influenza A (Rapid) NEGATIVE (NEGATIVE) 11/18/19 02:15 Influenza B (Rapid) NEGATIVE (NEGATIVE) 11/18/19 02:15 Group A Strep Rapid NEGATIVE (NEGATIVE) 11/18/19 02:25 Slides for Path Review PATHOLOGIST REVIEWED 11/18/19 01:46 Impressions: Chest X-Ray 11/18/19 01:56 IMPRESSION: No acute disease. Abdomen/Pelvis CT 11/18/19 12:15 IMPRESSION: 1. Diffuse heterogeneity of the hepatic parenchyma with innumerable nodular hyperdensities consistent with metastases. 2. No bowel obstruction. 3. Trace amount of ascites. Plan Time Spent: Greater than 30 Minutes Stroke Is this a Stroke Patient?: No Acute Heart Failure - Is this a Heart Failure Patient?: No
[2019-11-20 13:13] VITALS: BP 121/73
[2019-11-20] MEDS: AMOXICILLIN TR/POT CLAVULANATE ES 600-42.9 MG/5 ML 75 ML PO SCH (14:44)
[2019-11-20] MEDS: NYSTATIN/DEXAMETH/DIPHEN SUSP 120 ML PO SCH (14:44)
[2019-11-20] MEDS: FLUCONAZOLE 200 MG/NS RTU 200 MG/100 ML RTUPB IV SCH (14:44)
[2019-11-21] MEDS ORDERED: PANTOPRAZOLE SODIUM 40 MG TABLET.DR PO SCH (06:00)
== END 2019-11-20 14:47 | disposition hospice, home (50) | DRG 871 ==
LOC: ER 01:40 → EH 03:49 → ICU 04:39 → 5 11-19 16:05
PROVIDERS: ADMIT Internal Medicine; ATTEND Internal Medicine
DX: A41.9 Sepsis, unspecified organism (principal); J18.9 Pneumonia, unspecified organism; D61.810 Antineoplastic chemotherapy induced pancytopenia; K72.00 Acute and subacute hepatic failure without coma; C78.7 Secondary malignant neoplasm of liver and intrahepatic bile duct; C78.00 Secondary malignant neoplasm of unspecified lung; I95.9 Hypotension, unspecified; D70.9 Neutropenia, unspecified; T45.1X5A Adverse effect of antineoplastic and immunosuppressive drugs, initial encounter; K72.90 Hepatic failure, unspecified without coma; D70.3 Neutropenia due to infection; K12.31 Oral mucositis (ulcerative) due to antineoplastic therapy; C50.919 Malignant neoplasm of unspecified site of unspecified female breast; D69.6 Thrombocytopenia, unspecified; E66.9 Obesity, unspecified; R65.20 Severe sepsis without septic shock; E86.1 Hypovolemia; Z60.2 Problems related to living alone; Z66 Do not resuscitate; Z79.899 Other long term (current) drug therapy; Z90.10 Acquired absence of unspecified breast and nipple; Z17.0 Estrogen receptor positive status [ER+]; Z87.891 Personal history of nicotine dependence; Z88.2 Allergy status to sulfonamides; Z88.8 Allergy status to other drugs, medicaments and biological substances
CPT/HCPCS: 36415; 71045; 74177; 80053; 81001; 82140; 82803; 82962; 83605; 83735; 84100; 85025; 85610; 85730; 87040; 87070; 87077; 87186; 87205; 87804; 87880; 93005; 93010; 96361; 96365; 99291; C9113; J1450; J2060; J2543; J3370; J3475; J3480; J3490; J7030; J7040; J7050; J7060